=== PATIENT | male | born 1940 | race Caucasian/White ===

== ENCOUNTER 2024-01-26 17:37 | Inpatient (IN) ==
--- OUTSIDE RECORDS SUMMARY | 2024-01-26 17:44 | External Medical Summary | Summary of Care ---
Author Name Unknown Organization [facility] Address [address] [facility] [place] [address] Phone [phone] Care Team Providers Care Credit Product Analyst Name Role Phone Laina Villanueva MD Primary Care Provider [phone] Reason for Visit * Reason Onset Date Comments Appointment 01/11/2024 Return 03/09 for AKs and keep 05/09 appt for full skin exam. Encounter Details Date Type Department Care Team (Late st Contact Info) Description 01/11/2024 [address] [place] [address] Mita Ramirez PA-C [address] [place] [address] [place] [address] Appointment (Return 03/09 for AKs and keep ... Allergies No known active allergiesdocumented as of this encounter (statuses as of 01/14/2024) Medications Medication Sig Dispensed Refills Start Date End Date Status Acetaminophen 500 MG Oral Capsule Take 1 Capsule by mouth. 0 Active Albuterol Sulfate 108 (90 Base) MCG/ACT Inhalation Aerosol Powder Breath Activated Inhale 2 Puffs by mouth. 0 Active amLODIPine Besylate 2.5 MG Oral Tablet (Norvasc) 0 09/24/2022 Active Atorvastatin Calcium 40 MG Oral Tablet (Lipitor) 0 09/25/2022 Active Diclofenac Sodium 75 MG Oral Tablet Delayed Release (Voltaren) Take 1 Tablet by mouth. 0 Active Furosemide 20 MG Oral Tablet (Lasix) 0 09/21/2022 Active Nitroglycerin 0.4 MG Sublingual Tablet Sublingual (Nitrostat) Place 1 Tablet under the tongue. 0 Active Pantoprazole Sodium 20 MG Oral Tablet Delayed Release (Protonix) 0 09/21/2022 Active Aspirin 81 MG Oral Capsule Take by mouth. 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 Slaughter, will attempt to get records) Atelectasis 09/18/2022 documented as of this encounter (statuses as of 01/14/2024) Social History Tobacco Use Types Packs/Day Years Used Date Smoking Tobacco: Former Cigarettes Smokeless Tobacco: Former Sex and Gender Information Value Date Recorded Sex Assigned at Not on file Gender Identity Not on file Sexual Orientation Not on file Job Start Date Occupation Industry Not on file Not on file Not on file documented as of this encounter Functional Status Functional Status Response Date of Assess ment Are you deaf or do you have serious difficulty h earing? No 10/25/2022 Are you blind or do you have serious difficulty seeing, even when wearing glasses? No 10/25/2022 Do you have serious difficul ty walking or climbing stairs? (5 years old or older) No 10/25/2022 Do you have difficulty dress ing or bathing? (5 years old or older) No 10/25/2022 Because of a physical, menta l, or emotional condition, do you have difficulty doing errands alone such as visiting a doctor s office or shopping? (15 years old or older) No 10/25/19 Cognitive Status Response Date of Assessm ent Because of a physical, menta l, or emotional condition, do you have serious difficulty concentrating, remembering, or making decisions? (5 years old or older) No 10/25/2022 documented as of this encounter Miscellaneous Notes * Telephone Encounter - Digna Hernández LPN - 01/14/2024 10:36 AM EDT Called, spoke with pt, scheduled. * Telephone Encounter - Digna Hernández LPN - 01/13/2024 1:57 PM EDT Called pt and left VM advising he give us a call to get this apt scheduled. * Telephone Encounter - Hilton Desir OSA - 01/11/2024 10:12 AM EDT Pt needs scheduled for the February appt. I found pt on Recall List. Please schedule. documented in this encounter Plan of Treatment Upcoming Encounters Date Type Department Care Team (Late st Contact Info) Description 03/02/2024 11:40 AM EDT Office Visit Dermatology [address] [place] [address] Mita Ramirez PA-C [address] [place] [address] [place] [phone] 05/11/2024 11:20 AM EDT Office Visit Dermatology [address] [place] [address] Mita Ramirez PA-C [address] [place] [address] [place] [address] Health Maintenance Due Date Last Done Comments Depression Screening 1952 DTaP,Tdap,and Td Vaccines (1 - Tdap) 11/18/1958 Zoster Vaccines (1 of 2) 11/18/1989 Pneumococcal Vaccine: 65+ Ye ars (1 of 1 - PCV) 11/18/2004 COVID-19 Vaccine (2022-2 4 season) 2023 Influenza Vaccine (FLU shot) (Season Ended) 2024 GARDASIL-HPV IMMUNIZATION SERIES Aged Out No longer eligible based on patient's age to complete this topic Hepatitis B Aged Out No longer eligi ble based on patient's age to complete this topic MENINGOCOCCAL (MENACTRA/MENVEO) Aged Out No longer eligible based on patient's age to complete this topic documented as of this encounter Medical Devices Not on filedocumented as of this encounter Care Teams Credit Product Analyst Relationship Specialty Start Date End Date Laina Villanueva MD [address] [place] [address] [place] [address] PCP - General 02/03/08 documented as of this encounter
--- OUTSIDE RECORDS SUMMARY | 2024-01-26 17:44 | External Medical Summary | Summary of Care ---
Author Name Unknown Organization [facility] Address [address] [place] [address] Phone [phone] Care Team Providers Care [employer] Developer Name Role Phone Laina Villanueva MD Primary Care Provider [phone] Reason for Visit * Reason Comments Mohs Surgery Mohs L scalp behind ear- * Evaluate & Treat - Unlimited Visits (Within 10 days (routine)) - Authorized Specialty Diagnoses / Procedures Referred By Contac t Referred To Contact Dermatology Diagnoses SCC (squamous cell carcinoma), scalp/neck Basal cell carcinoma (BCC) of chin Mita Ramirez PA-[address] [place] [address] Referral ID Status Reason Start Date Expiration Date Visits Requested Visits Authorized [id number] Authorized Specialty Services Required 12/19/2023 [id number] Encounter Details Date Type Department Care Team (Late st Contact Info) Description 12/31/2023 10:00 AM EDT Office Visit MOHS Surgery [facility] [address] [place] [address] Rachelle Preston MD [address] [place] [id number] Squamous cell carcinoma of scalp*; Basal cell carcinoma (BCC) of right side of neck Allergies No known active allergiesdocumented as of this encounter (statuses as of 12/31/2023) Medications Medication Sig Dispensed Refills Start Date [...] as of this encounter (statuses as of 12/31/2023) Active Problems Problem Noted Date Diagnosed Date [...] as of this encounter (statuses as of 12/31/2023) Social History Tobacco Use Types Packs/Day Years Used Date Smoking Tobacco: Former Cigarettes Smokeless Tobacco: Former Sex and Gender Information Value Date Recorded Sex Assigned at Not on file Gender Identity Not on file Sexual Orientation Not on file Job Start Date Occupation Industry Not on file Not on file Not on file documented as of this encounter Last Filed Vital Signs Vital Sign Reading Time Taken Comments Blood Pressure - - Pulse - - Temperature 36.4 C (97.5 F) 12/31/2023 9:53 AM ED T Respiratory Rate - - Oxygen Saturation - - Inhaled Oxygen Concentration - - Weight 82.1 kg (181 lb) 12/31/2023 9:53 AM EDT Height - - Body Mass Index - - documented in this encounter Functional Status Functional Status Response [...] No 10/25/2022 documented as of this encounter Progress Notes * Rachelle Preston MD - 12/31/2023 12:54 PM EDT Nadine Mohs Surgery Note (See separate transcribed operative note for further detail) History: Huy Rayo is a 83 year old patient seen at the request of Mita Ramirez PA-C for evaluation and management of the following lesions: A. Skin, L scalp, behind ear, shave: Atypical squamous proliferation, extending broadly to the deep margin (see comment) Comment: There are features of at least hypertrophic actinic keratosis but given the volume that extends broadly to the deep margin this is concerning for underlying invasive squamous cell carcinoma,not visible in the portions available. B. Skin, R underside of chin, shave: Basal cell carcinoma, at least nodular type Patient problem list reviewed. Patient medication/allergy lists reviewed. Examination: Huy Rayo is alert, oriented and appears well and in no distress. The patient's skin is remarkable for: Left scalp, behind ear: 1.2 cm x 1 cm crusted eroded plaque Right underside of chin: 1.6 cm x 1.1 cm pink plaque Impression/Plan: Atypical squamous proliferation, left scalp, behind ear - lesion re-biopsied today, read in Mohs lab on frozen sections, diagnosed as squamous cell carcinoma, and subsequently treated with Mohs micrographic surgery Shave Biopsy of the lesion noted above to establish and confirm diagnosis. The procedure, risks, benefits, alternatives and expected outcomes were discussed with the patient and consent was obtained.Time out called. Patient identified, procedure verified, site identified and verified. Patient and staff present in agreement. Area prepped with alcohol and anesthetized with 0.5% lidocaine with epinephrine at 1:200,000 concentration. Biopsy of lesion performed. 20% AlCl and bandaging applied. Specimen sent to Mohs lab for frozen sections. Specimen # [id number] BIOPSY NUMBER/TYPE/SITE: [id number], shave biopsy, left scalp, behind ear. GROSS DESCRIPTION OF SPECIMEN: Received is a specimen of tissue labelled corresponding to the site listed. MICROSCOPIC DESCRIPTION OF SPECIMEN: Irregular masses of epidermal cells exhibiting squamous atypiaextend into the dermis. 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 Microscopic examination of the specimen allowed the Mohs surgeon, whose dual role is to function as both surgeon and pathologist, to precisely identify the location of any remaining tumor or ascertain that the tissue margins were free of tumor. This process of excision of remaining tumor, mapping, and histologic exam was repeated until the tumor was excised completely. Patient identified, procedure verified, site identified and verified with the patient. Time out completed. Surgical removal of the lesion discussed with the patient (risks and benefits, including possibility of scarring, infection, bleeding, recurrence or potential for further treatment). I have specifically identified the site with the patient. I have discussed the fact that the patient will have a scar after the procedure regardless of granulation or repair with sutures. I have discussed that the repair options can range from granulation in some cases to linear or curvilinear closures to larger flaps or grafts. There is a risk of injury to nerves causing temporary or permanent numbness or the inability to move muscles fully such as the inability to lift eyebrows. Questions answered and verbal and written consent was obtained. 1 stage(s) Anesthetic: 0.05% lidocaine with 1:100,000 epinephrine. Repair: Primary Intermediate layered repair (see separate operative report for details) Absorbable sutures Wound care was discussed verbally, demonstrated and printed wound instructions given as well as wound care supplies. Patient instructed to call with questions or concerns. Personal contact information provided. 2. Basal cell carcinoma - right underside of chin MMS Standard Mohs micrographic technique was utilized to treat this tumor. Microscopic examination of the specimen allowed the Mohs surgeon, whose dual role is to function as both surgeon and pathologist, to precisely identify the location of any remaining tumor or ascertain that the tissue margins were free of tumor. This process of excision of remaining tumor, mapping, and histologic exam was repeated until the tumor was excised completely. Patient identified, procedure verified, site identified and verified with the patient. Time out completed. Surgical removal of the lesion discussed with the patient (risks and benefits, including possibility of scarring, infection, recurrence or potential for further treatment). I have specifically identified the site with the patient. I have discussed the fact that the patient will have a scar after the procedure regardless of granulation or repair with sutures. I have discussed that the repair options can range from granulation in some cases to linear or curvilinear closures to larger flaps or grafts. There is a risk of injury to nerves causing temporary or permanent numbness or the inability to move muscles fully such as the inability to lift eyebrows. Questions answered and verbal and written consent was obtained. 1 stage(s) Anesthetic: 0.05% lidocaine with 1:100,000 epinephrine. Repair: Primary Intermediate layered repair (see separate operative report for details) Absorbable sutures Wound care was discussed verbally, demonstrated and printed wound instructions given as well as wound care supplies. Patient instructed to call with questions or concerns. Personal contact information provided. Follow-up: as needed Rachelle Preston MD Associate, Mohs Micrographic Surgery & Dermatologic Surgery documented in this encounter Nursing Notes * Enma Clifford LPN - 12/31/2023 9:54 AM EDT Referral Doctor: Ashley Hypertension History: Yes, refer to medication information for treatment. Diabetes History: No Thyroid History: No Bleeding Tendency: Yes, refer to medication information for treatment. Artificial Valve or Joint: No Pacemaker: no Defibrillator: no Hepatitis/HIV Exposure: No Smoking: no Consent signed yes documented in this encounter Plan of Treatment Upcoming Encounters Date Type Department Care Team (Late st Contact Info) Description 05/06/2024 8:40 AM EDT Office Visit Dermatology Emmie Tsang [address] [place] [address] [place] [address] Mita Ramirez PA-C [address] [place] [address] [place] [address] Scheduled Referrals Name Type Priority Associated Diagnoses Orde r Schedule MOHS SURGERY REFERRAL OP Referral Within 10 days (routine) SCC (squamous cell carcinoma), scalp/neck Basal cell carcinoma (BCC) of chin Ordered: 12/19/2023 Health Maintenance Due Date Last Done Comments Depression Screening 1952 DTaP,Tdap,and Td Vaccines (1 - Tdap) 11/18/1958 Zoster Vaccines (1 of 2) 11/18/1989 Pneumococcal Vaccine: 65+ Ye ars (1 of 1 - PCV) 11/18/2004 COVID-19 Vaccine ( - 2022-2 4 season) 2023 Influenza Vaccine (FLU shot) [...] Not on filedocumented as of this encounter Visit Diagnoses Diagnosis Squamous cell carcinoma of scalp- Primary Squamous cell carcinoma of scalp and skin of neck Basal cell carcinoma (BCC) of right side of neck documented in this encounter Care Teams [employer] Developer Relationship Specialty Start Date End Date Laina Villanueva MD [address] [place], [place] [address] [address] PCP - General 02/03/08 documented as of this encounter
--- OUTSIDE RECORDS SUMMARY | 2024-01-26 17:44 | External Medical Summary | Summary of Care ---
Author Name Unknown Organization [facility] [address] [facility] [address] Phone [phone] Care Team Providers Care Engagement Specialist Name Role Phone Laina Villanueva MD Primary Care Provider [phone] Reason for Referral * Evaluate & Treat - Unlimited Visits (Within 10 days (routine)) - Authorized Specialty Diagnoses / Procedures Referred By Contann t Referred To Contact Dermatology Diagnoses SCC (squamous cell carcinoma), scalp/neck Basal cell carcinoma (BCC) of [facility] Mita Ramirez PA-C [address] [place] [address] [place] [id number] Referral ID Status Reason Start Date Expiration Date Visits Requested Visits Authorized [id number] Authorized Specialty Services Required 12/19/2023 999 [id number] Question Answer Referral Priority Within 10 days (routine) Where should this appointment be scheduled? [facility] Are you referring the patient for Mohs Surgery and have a current positive skin cancer biopsy result? Yes Type of Procedure MOHS Surgery Comments Spoke to pt regarding bx results. hAK/likely SCC on scalp and BCC on underside of chin, plan on Mohs for both lesions in [facility]. Patient is aware that he will be called to schedule the appt. [facility] A. Skin, L scalp, behind ear, shave: Atypical squamous proliferation, extending broadly to the deep margin (see comment) Comment: There are features of at least hypertrophic actinic keratosis but given the volume that extends broadly to the deep margin this is concerning for underlying invasive squamous cell carcinoma, not visible in the portions available. B. Skin, R underside of chin, shave: Basal cell carcinoma, at least nodular type Reason for Visit * Reason Onset Date Comments Appointment 12/19/2023 Encounter Details Date Type Department Care Team (Late st Contact Info) Description 12/19/2023 Telephone Dermatology Ara Deleon [address] [place] [address] Mita Ramirez PA-C [address] [place] [address] [place] [address] Appointment Allergies No known active allergiesdocumented as of this encounter (statuses as of 12/20/2023) Medications Medication Sig Dispensed Refills Start Date [...] as of this encounter (statuses as of 12/20/2023) Active Problems Problem Noted Date Diagnosed Date [...] as of this encounter (statuses as of 12/20/2023) Social History Tobacco Use Types Packs/Day Years [...] encounter Miscellaneous Notes * Telephone Encounter - Nela Hernandez OSA - 12/20/2023 9:[address] Preston reviewing for first date for mohs for lesion A - if it is ok to offer him 01/30/27. will call patient to schedule as soon as I hear back from DR preston in regard to scheduling * Telephone Encounter - Rachelle Preston MD - 12/19/2023 9:51 PM EDT Two Mohs appt. First Mohs should be for lesion A (re-bx and treat as indicated) and second Mohs for lesion B. A. Skin, L scalp, behind ear, shave: [...] Basal cell carcinoma, at least nodular type * Telephone Encounter - Nela Hernandez OSA - 12/19/2023 1:[address] Preston please review for scheduling. ONE mohs or Two mohs? * Telephone Encounter - Mita Ramirez PA-C - 12/19/2023 12:48 PM EDT Spoke to pt regarding bx results. hAK/likely SCC on scalp and BCC on underside of chin, plan on Mohs for both lesions in [facility]. Patient is aware that he will be called to schedule the appt. Mita Ramirez [facility] A. Skin, L scalp, behind ear, shave: [...] Basal cell carcinoma, at least nodular type documented in this encounter Plan of Treatment Upcoming Encounters Date Type Department Care Team (Late st Contact Info) Description 05/06/2024 8:40 AM EDT Office Visit Dermatology [address] [place] [address] Mita Ramirez PA-C [address] [place] [address] [place] [address] Scheduled Referrals Name Type Priority Associated Diagnoses [...] as of this encounter Visit Diagnoses Diagnosis SCC (squamous cell carcinoma), scalp/neck- Primary Squamous cell carcinoma of scalp and skin of neck Basal cell carcinoma (BCC) of chin documented in this encounter Care Teams Engagement Specialist Relationship Specialty Start Date End Date Laina Villanueva MD [address] [place] [address] [place] [address] PCP - General 02/03/08 documented as of this encounter
--- OUTSIDE RECORDS SUMMARY | 2024-01-26 17:44 | External Medical Summary | Summary of Care ---
Author Name Unknown Organization [facility] [address] [facility] [address] Phone [phone] Care Team Providers Care Radio Tester Name Role Phone Laina Villanueva MD Primary Care Provider [phone] Reason for Referral * Evaluate & Treat - Unlimited Visits (Within 10 days (routine)) - Authorized Specialty Diagnoses / Procedures Referred By Contann t Referred To Contact Dermatology Diagnoses SCC (squamous cell carcinoma), scalp/neck Basal cell carcinoma (BCC) of [facility] Mita Ramirez PA-C [address] [place] [address] [place] [address] Referral ID Status Reason Start Date Expiration Date Visits Requested Visits Authorized [id number] Authorized Specialty Services Required 12/19/2023 999 [id number] [...] plan on Mohs for both lesions in [facility]. Patient is aware that he will be called to schedule the appt. Mita Ramirez [facility] A. Skin, L scalp, behind ear, shave: [...] Info) Description 12/19/2023 Telephone Dermatology Ara Deleon S[address] [place] [address] Mita Ramirez PA-C [address] [place] [address] [place] [address] Appointment Allergies No known active allergiesdocumented as of this encounter (statuses as of 12/23/2023) Medications Medication Sig Dispensed Refills Start Date [...] as of this encounter (statuses as of 12/23/2023) Active Problems Problem Noted Date Diagnosed Date [...] as of this encounter (statuses as of 12/23/2023) Social History Tobacco Use Types Packs/Day Years [...] Telephone Encounter - Nela Hernandez OSA - 12/23/2023 8:[address] Preston how soon should lesion A be scheduled? * Telephone Encounter - Nela Hernandez OSA - 12/20/2023 9:[address] Preston reviewing for first date for mohs for lesion A -I will call patient to schedule as soon [...] plan on Mohs for both lesions in [facility]. Patient is aware that he will be called to schedule the appt. Mita Ramirez [facility] A. Skin, L scalp, behind ear, shave: [...] Date Type Department Care Team (Late st [facility] Info) Description 05/06/2024 8:40 AM EDT Office Visit Dermatology Emmie Tsang [address] [place] [address] [place] [address] Mita Ramirez PA-C [address] [place] [address] [place] [address] Scheduled Referrals Name Type Priority Associated Diagnoses [...] chin documented in this encounter Care Teams Radio Tester Relationship Specialty Start Date End Date Laina Villanueva MD [address] [place], [place] [address] [address] PCP - General 02/03/08 documented as of this encounter
--- OUTSIDE RECORDS SUMMARY | 2024-01-26 17:44 | External Medical Summary | Summary of Care ---
Author Name Unknown Organization [facility] [address] [facility] [address] Phone [phone] Care Team Providers Care District Captain Name Role Phone Laina Villanueva MD Primary Care Provider [phone] [phone] Reason for Referral * Evaluate & Treat - Unlimited Visits (Within 10 days (routine)) - Authorized Specialty Diagnoses / Procedures Referred By Contann t Referred To Contact Dermatology Diagnoses SCC (squamous cell carcinoma), scalp/neck Basal cell carcinoma (BCC) of [facility] Mita Ramirez PA-C [address] [place] [address] [place] [address] Referral ID Status Reason Start Date Expiration Date Visits Requested Visits Authorized [id number] Authorized Specialty Services Required 12/19/2023 999 999 [...] plan on Mohs for both lesions in [facility]. Patient is aware that he will be called to schedule the appt. [facility]ita Ramirez [facility] Skin, L scalp, behind ear, shave: [...] Info) Description 12/19/2023 Telephone Dermatology Ara Deleon [place] [place] [address] Mita Ramirez PA-C [address] [place] [address] [place] [address] Appointment Allergies No known active allergiesdocumented as [...] Encounter - Nela Hernandez OSA - 12/23/2023 9:26 AM EDT Spoke to patient and scheduled for 12/30 at 10am for scalp and 05/21 for chin will send a mohs packet * Telephone Encounter - Rachelle Preston MD - 12/23/2023 8:41 AM EDT Within 6 weeks, if nothing available, schedule for first available and add to cancellation list. * Telephone Encounter - Nela Hernandez OSA [...] plan on Mohs for both lesions in [facility]. Patient is aware that he will be called to schedule the appt. Mita Ramirez [facility] A. Skin, L scalp, behind ear, shave: [...] 10:00 AM EDT Office Visit [facility] [address] [address] Rachelle Preston MD [address] [place] [address] [place] [address] 05/06/2024 8:40 AM EDT Office Visit Dermatology [address] [place] [address] Mita Ramirez PA-C [address] [place] [address] [place] [address] 05/21/2024 10:30 AM EDT Office Visit [facility] [address] [place] [address] Rachelle Preston MD [address] [place] [address] [place] [address] Scheduled Referrals Name Type Priority Associated Diagnoses [...] chin documented in this encounter Care Teams District Captain Relationship Specialty Start Date End Date Laina Villanueva MD [address] [place] [address] [place] [address] PCP - General 02/03/08 documented as of this encounter
--- OUTSIDE RECORDS SUMMARY | 2024-01-26 17:44 | External Medical Summary | Summary of Care ---
Author Name Unknown Organization [facility] Address [address] [facility] [address] Phone [phone] Care Team Providers Care Bulk Pallet Builder Name Role Phone Laina Villanueva MD Primary Care Provider [phone] Reason for Referral * Evaluate & Treat - Unlimited Visits (Within 10 days (routine)) - Authorized Specialty Diagnoses / Procedures Referred By Contann t Referred To Contact Dermatology Diagnoses SCC (squamous cell carcinoma), scalp/neck Basal cell carcinoma (BCC) of [facility] Mita Ramirez PA-C [address] [place] [address] [place] [address] Referral ID Status Reason Start Date Expiration Date Visits Requested Visits Authorized [id number] Authorized Specialty Services Required 12/19/2023 999 999 [...] plan on Mohs for both lesions in [facility]. Patient is aware that he will be called to schedule the appt. [facility] Skin, L scalp, behind ear, [...] Info) Description 12/19/2023 Telephone Dermatology Ara Deleon [place] [place] [address] Mita Ramirez PA-C [address] [place] [address] [place] [address] Appointment Allergies No known active allergiesdocumented as [...] first date for mohs for lesion A will call patient to schedule as soon as Ihear back from DR preston in regard to [...] plan on Mohs for both lesions in [facility]. Patient is aware that he will be called to schedule the appt. Mita Ramirez [facility]. Skin, L scalp, behind ear, [...] 05/06/2024 8:40 AM EDT Office Visit Dermatology [address] [place] [address] Mita Ramirez PA-C [address] [place] [address] [place] [address] Scheduled Referrals Name Type Priority Associated Diagnoses [...] of 1 - PCV) 11/18/2004 COVID-19 Vaccine (1 - 2022-2 4 season) 2023 Influenza Vaccine [...] chin documented in this encounter Care Teams Bulk Pallet Builder Relationship Specialty Start Date End Date Laina Villanueva MD [address] [place] [address] PCP - General 02/03/08 documented as of this encounter
--- OUTSIDE RECORDS SUMMARY | 2024-01-26 17:44 | External Medical Summary | Summary of Care ---
Author Name Unknown Organization [facility] Address [address] [facility] [address] Phone [phone] Care Team Providers Care Metal Moulder Name Role Phone Laina Villanueva MD Primary Care Provider [phone] Reason for Referral * Evaluate & Treat - Unlimited Visits (Within 10 days (routine)) - Authorized Specialty Diagnoses / Procedures Referred By Contann t Referred To Contact Dermatology Diagnoses SCC (squamous cell carcinoma), scalp/neck Basal cell carcinoma (BCC) of [facility] Mita Ramirez PA-C [address] [place] [address] [place] [address] Referral ID Status Reason Start Date Expiration Date Visits Requested Visits Authorized [id number] Authorized Specialty Services Required 12/19/2023 999 999 [...] plan on Mohs for both lesions in [facility]. Patient is aware that he will be called to schedule the appt. [facility] Skin, L scalp, behind ear, [...] Info) Description 12/19/2023 Telephone Dermatology Ara Deleon [place] [place] [address] Mita Ramirez PA-C [address] [place] [address] [place] [address] Appointment Allergies No known active allergiesdocumented as [...] encounter Miscellaneous Notes * Telephone Encounter - Rachelle Preston MD [...] plan on Mohs for both lesions in [facility]. Patient is aware that he will be called to schedule the appt. Mita Ramirez JILLIAN Bird. Skin, L scalp, behind ear, shave: Atypical [...] 05/06/2024 8:40 AM EDT Office Visit Dermatology [address] [place] [address] Mita Ramirez PA-C [address] [place] [address] [place] [address] Scheduled Referrals Name Type Priority Associated Diagnoses [...] chin documented in this encounter Care Teams Metal Moulder Relationship Specialty Start Date End Date Laina Villanueva MD [address] [place] [address] [place] [address] PCP - General 02/03/08 documented as of this encounter
--- OUTSIDE RECORDS SUMMARY | 2024-01-26 17:44 | External Medical Summary | Summary of Care ---
Author Name Unknown Organization [facility] Address [address] [facility] [address] Phone [phone] Care Team Providers Care Service Unit Operator Oil Well Name Role Phone Laina Villanueva MD Primary Care Provider [phone] Reason for Referral * Evaluate & Treat - Unlimited Visits (Within 10 days (routine)) - Authorized Specialty Diagnoses / Procedures Referred By Contann t Referred To Contact Dermatology Diagnoses SCC (squamous cell carcinoma), scalp/neck Basal cell carcinoma (BCC) of [facility] Mita Ramirez PA-C [address] [place] [address] [place] [address] Referral ID Status Reason Start Date Expiration Date Visits Requested Visits Authorized [id number] Authorized Specialty Services Required 12/19/2023 999 999 [...] plan on Mohs for both lesions in [facility]. Patient is aware that he will be called to schedule the appt. [facility]ita [facility]. Skin, L scalp, behind ear, shave: [...] Info) Description 12/19/2023 Telephone Dermatology Ara Deleon [place] [place] [address] Mita Ramirez PA-C [address] [place] [address] [place] [address] Appointment Allergies No known active allergiesdocumented as [...] plan on Mohs for both lesions in [facility]. Patient is aware that he will be called to schedule the appt. Mita Ramirez [facility]. Skin, L scalp, behind ear, shave: [...] 05/06/2024 8:40 AM EDT Office Visit Dermatology [address] [place] [address] Mita Ramirez PA-C [address] [place] [address] [place] [address] Scheduled Referrals Name Type Priority Associated Diagnoses [...] chin documented in this encounter Care Teams Service Unit Operator Oil Well Relationship Specialty Start Date End Date Laina Villanueva MD [address] [place] [address] PCP - General 02/03/08 documented as of this encounter
--- OUTSIDE RECORDS SUMMARY | 2024-01-26 17:45 | External Medical Summary | Summary of Care ---
Author Name Unknown Organization [facility] Address [address] [facility] [address] Phone [phone] Care Team Providers Care Medical Office Receptionist Name Role Phone Laina Villanueva MD Primary Care Provider [phone] Reason for Referral * Evaluate & Treat - Unlimited Visits (Within 10 days (routine)) - Authorized Specialty Diagnoses / Procedures Referred By Contann t Referred To Contact Dermatology Diagnoses SCC (squamous cell carcinoma), scalp/neck Basal cell carcinoma (BCC) of [facility] Mita Ramirez PA-C [address] [place] [address] [place] [address] Referral ID Status Reason Start Date Expiration Date Visits Requested Visits Authorized [id number] Authorized Specialty Services Required 12/19/2023 999 999 [...] plan on Mohs for both lesions in [facility]. Patient is aware that he will be called to schedule the appt. [facility]. Skin, L scalp, behind ear, [...] Info) Description 12/19/2023 Telephone Dermatology Ara Deleon [place] [place] [address] Mita Ramirez PA-C [address] [place] [address] [place] [address] Appointment Allergies No known active allergiesdocumented as [...] plan on Mohs for both lesions in [facility]. Patient is aware that he will be called to schedule the appt. Mita Ramirez [facility]. Skin, L scalp, behind ear, [...] 05/06/2024 8:40 AM EDT Office Visit Dermatology [address] [place] [address] Mita Ramirez PA-C [address] [place] [address] [place] [address] Scheduled Referrals Name Type Priority Associated Diagnoses [...] chin documented in this encounter Care Teams Medical Office Receptionist Relationship Specialty Start Date End Date Laina Villanueva MD [address] [place] [address] PCP - General 02/03/08 documented as of this encounter
--- OUTSIDE RECORDS SUMMARY | 2024-01-26 17:45 | External Medical Summary | Summary of Care ---
Author Name Unknown Organization [facility] Address [address] [facility] [address] Phone [phone] Care Team Providers Care Universal Banker Name Role Phone Laina Villanueva MD Primary Care Provider [phone] Reason for Referral * Evaluate & Treat - Unlimited Visits (Within 10 days (routine)) - Authorized Specialty Diagnoses / Procedures Referred By Contann t Referred To Contact Dermatology Diagnoses SCC (squamous cell carcinoma), scalp/neck Basal cell carcinoma (BCC) of [facility] Mita Ramirez PA-C [address] [place] [address] [place] [address] Referral ID Status Reason Start Date Expiration Date Visits Requested Visits Authorized [id number] Authorized Specialty Services Required 12/19/2023 999 999 [...] on Mohs for both lesions in [facility]. Patient is aware that he will be called to schedule the appt. Mita Ramirez [facility] A. Skin, L scalp, behind ear, shave: [...] Info) Description 12/19/2023 Telephone Dermatology Ara Deleon [place] [place] [address] Mita Ramirez PA-C [address] [place] [address] [place] [address] Appointment Allergies No known active allergiesdocumented as of this encounter (statuses as of 12/19/2023) Medications Medication Sig Dispensed Refills Start Date [...] as of this encounter (statuses as of 12/19/2023) Active Problems Problem Noted Date Diagnosed Date [...] as of this encounter (statuses as of 12/19/2023) Social History Tobacco Use Types Packs/Day Years [...] plan on Mohs for both lesions in [facility]. Patient is aware that he will be called to schedule the appt. Mita Ramirez [facility]IAN A. Skin, L scalp, behind ear, shave: [...] 05/06/2024 8:40 AM EDT Office Visit Dermatology [address] [place] [address] Mita Ramirez PA-C [address] [place] [address] [place] [address] Scheduled Referrals Name Type Priority Associated Diagnoses [...] chin documented in this encounter Care Teams Universal Banker Relationship Specialty Start Date End Date Laina Villanueva MD [address] [place] [address] [place] [address] PCP - General 02/03/08 documented as of this encounter
--- OUTSIDE RECORDS SUMMARY | 2024-01-26 17:45 | External Medical Summary | Summary of Care ---
Author Name Unknown Organization [facility] Address [address] [facility] [place] [address] Phone [phone] Care Team Providers Care Forging Machine Hand Name Role Phone Laina Villanueva MD Primary Care Provider [phone] Reason for Visit * Reason Comments Outpatient Testing Encounter Details Date Type Department Care Team (Latest Contact Info) Description 10/18/2023 9:20 AM EST Laboratory Laboratory [address] [place] [address] [facility] [address] [place] [address] Elinor type IIa hyperlipoproteinemia Allergies No known active allergiesdocumented as of this encounter (statuses as of 10/18/2023) Medications Medication Sig Dispensed Refills Start Date [...] as of this encounter (statuses as of 10/18/2023) Active Problems Problem Noted Date Diagnosed Date 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 Slaughter, will attempt to get records) Atelectasis 09/18/2022 documented as of this encounter (statuses as of 10/18/2023) Social History Tobacco Use Types Packs/Day Years [...] No 10/25/2022 documented as of this encounter Plan of Treatment Upcoming Encounters Date Type Department Care Team (Late st Contact Info) Description 05/06/2024 8:40 AM EDT Office Visit Dermatology [address] [place] [address] Mita Ramirez PA-C [address] [place] [address] [place] [address] Pending Results Name Type Priority Associated Diagnoses Date /Time LIPID PANEL WITH DIRECT LDL IF TG IS HIGH Lab Routine Elinor type IIa hyperlipoproteinemia 10/18/2023 9:22 AM EST COMPREHENSIVE METABOLIC PANEL Lab Routine Elinor type IIa hyperlipoproteinemia 10/18/2023 9:22 AM EST PSA Lab Routine Elinor type IIa hyperlipoproteinemia 10/18/2023 9:22 AM EST Health Maintenance Due Date Last Done Comments COVID-19 Vaccine (#1) 05/21/1941 Depression Screening 1952 DTaP,Tdap,and Td Vaccines (1 - Tdap) 11/18/1958 Zoster Vaccines (1 of 2) 11/18/1989 Pneumococcal Vaccine: 65+ Ye ars (1 - PCV) 11/18/2004 Influenza Vaccine (FLU shot) (#1) 2023 GARDASIL-HPV IMMUNIZATION SERIES Aged Out No longer [...] as of this encounter Visit Diagnoses Diagnosis Elinor type IIa hyperlipoproteinemia Pure hypercholesterolemia documented in this encounter Care Teams Forging Machine Hand Relationship Specialty Start Date End Date Laina Villanueva MD [address] [place], [place] [address] [place] [address] PCP - General 02/03/08 documented as of this encounter
--- OUTSIDE RECORDS SUMMARY | 2024-01-26 17:45 | External Medical Summary | Summary of Care ---
Author Name Unknown Organization [facility] Address [address] [facility] [address] Phone [phone] Care Team Providers Care Waste Elimination Name Role Phone Laina Villanueva MD Primary Care Provider [phone] Reason for Referral * Evaluate & Treat - Unlimited Visits (Within 10 days (routine)) - Authorized Specialty Diagnoses / Procedures Referred By Contann t Referred To Contact Dermatology Diagnoses SCC (squamous cell carcinoma), scalp/neck Basal cell carcinoma (BCC) of [facility] Mita Ramirez PA-C [address] [place] [address] [place] [address] Referral ID Status Reason Start Date Expiration Date Visits Requested Visits Authorized [id number] Authorized Specialty Services Required 12/19/2023 999 999 [...] plan on Mohs for both lesions in [facility]. Patient is aware that he will be called to schedule the appt. Mita Ramirez [facility]. Skin, L scalp, behind ear, [...] Info) Description 12/19/2023 Telephone Dermatology Ara Deleon [place] [place] [address] Mita Ramirez PA-C [address] [place] [address] [place] [address] Appointment Allergies No known active allergiesdocumented as [...] encounter Miscellaneous Notes * Telephone Encounter - Mita Ramirez PA-C - 12/19/2023 12:48 PM EDT Spoke to pt regarding bx results. hAK/likely SCC on scalp and BCC on underside of chin, plan on Mohs for both lesions in [facility]. Patient is aware that he will be called to schedule the appt. Mita Ramirez SJILLIAN Skin, L scalp, behind ear, shave: Atypical squamous proliferation, extending broadly to the deep margin (see comment) Comment: There are features of at least hypertrophic actinic keratosis but given the volume that extends broadly to the deep margin this is concerning for underlying invasive squamous cell carcinoma,not visible in the portions available. B. Skin, R underside of chin, mark: Basal cell carcinoma, at least nodular type documented in this encounter Plan of Treatment Upcoming Encounters Date Type Department Care Team (Late st Contact Info) Description 05/06/2024 8:40 AM EDT Office Visit Dermatology [address] [place] [address] Mita Ramirez PA-C [address] [place] [address] [place] [address] Scheduled Referrals Name Type Priority Associated Diagnoses [...] chin documented in this encounter Care Teams Waste Elimination Relationship Specialty Start Date End Date Laina Villanueva MD [address] [place], [place] [address] [place] [address] PCP - General 02/03/08 documented as of this encounter
--- OUTSIDE RECORDS SUMMARY | 2024-01-26 17:45 | External Medical Summary | Summary of Care ---
Author Name Unknown Organization [facility] Address [address] [facility] [place] [address] Phone [phone] Care Team Providers Care Retail Center Receptionist Name Role Phone Laina Villanueva MD Primary Care Provider [phone] Reason for Visit * Reason Comments Follow Up 2-3 months for AKs Encounter Details Date Type Department Care Team (Late st Contact Info) Description 12/18/2023 11:20 AM EDT Office Visit Dermatology [address] [place] [address] Mita Ramirez PA-C [address] [place] [address] [place] [address] Hx of melanoma of skin*; Hx of nonmelanoma skin cancer; Actinic keratosis; Neoplasm of uncertain behavior of skin Allergies No known active allergiesdocumented as of this encounter (statuses as of 12/18/2023) Medications Medication Sig Dispensed Refills Start Date [...] as of this encounter (statuses as of 12/18/2023) Active Problems Problem Noted Date Diagnosed Date 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 Slaughter, will attempt to get records) Atelectasis 09/18/2022 documented as of this encounter (statuses as of 12/18/2023) Social History Tobacco Use Types Packs/Day Years [...] No 10/25/2022 documented as of this encounter Patient Instructions * Patient Instructions* Mita Ramirez PA-C - 12/18/2023 11:24 AM EDT Skin Cryosurgery (FREEZING) Instructions Most areas treated by freezing will need very little care. You may wash normally with soap and water and leave any small crusts in place. Vaseline to treated areas 2-3 times per day is a good idea, you do not need to keep them covered with bandages. If a large blister forms and breaks, you will want to apply a light dressing to the area. CHANGE DRESSING ONCE DAILY 1. Wash hands and remove the original dressing(s) in 12-24 hours. 2. Gently clean wound(s) with soap and water. Rinse with water and pat the wound dry. 3. Apply a thin layer of Vaseline ointment with a Q-tip. 4. Cover with a bandage if area(s) is not on the face or scalp. A dressing is not required on the face or scalp. Use non-adherent dressing and paper tape if you are sensitive to band-aid adhesive sensitive. 5. If you have any concerns about the healing wound, please either or our main Dermatology office in [place] at [phone]. If an emergency, please go to your nearest Emergency Department. documented in this encounter Progress Notes * Mita Ramirez PA-C - 12/18/2023 11:22 AM EDT SUBJECTIVE: History of Present Illness: Huy Rayo is a 82 year old male seen today for follow up of AKs. Previous office visit: 08/14/2023 Last attempted treatments include: cryo to AKs Full skin exam 05/08 Symptomatic scaly area behind L ear. REVIEW OF SYSTEMS: SKIN: No other new or changing moles. HEME/LYMPH: No new or enlarging lumps or bumps. CONSTITUTIONAL: No nausea, vomiting, fevers, chills, diarrhea. No recent unintended weight loss, night sweats, appetite or malaise. RESP: negative MSK/EXT: Negative or as per HPI GI: negative CV: Negative or as per HPI Rest of systems are negative or as per HPI SKIN CANCER HX: MalignantMelanoma (L preauricular cheek 06/02, 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 Slaughter), actinic keratoses Reviewed, same day as visit, 0 [facility] Dermatology lab work(s)/pathology report(s) as well as those sent by referring provider prior to seeing pt. MEDICA TIONS: Current Outpatient Medications Medication Sig Dispense Refill Acetaminophen 500 MG Oral Capsule Take 1 Capsule by mouth. Albuterol Sulfate 108 (90 Base) MCG/ACT Inhalation Aerosol Powder Breath Activated Inhale 2 Puffs by mouth. amLODIPine Besylate 2.5 MG Oral Tablet (Norvasc) Atorvastatin Calcium 40 MG Oral Tablet (Lipitor) Diclofenac Sodium 75 MG Oral Tablet Delayed Release (Voltaren) Take 1 Tablet by mouth. Furosemide 20 MG Oral Tablet (Lasix) Nitroglycerin 0.4 MG Sublingual Tablet Sublingual (Nitrostat) Place 1 Tablet under the tongue. Pantoprazole Sodium 20 MG Oral Tablet Delayed Release (Protonix) Aspirin 81 MG Oral Capsule Take by mouth. No current facility-administered medications for this visit. ALLERG IES: Patient has noknown allergies. OBJECT CESAR: GEN: alert, no distress, appears oriented, pleasant, and cooperative. SKIN: Detailed exam of hair, face including lids and lips, neck, bilateral upper ext. (arm, hand, fingers), palpation of scalp, and fingernails completed: 1A. L scalp, behind ear-[id number] eroded pink/hemorrhagic oval papule. 2B. R underside of chin-1.3x0.4cm white/yellow hyperkeratotic plaque. 3. Scalp/face/ears/neck-Extensive pink scaly papules and plaques, some hyperkeratotic. ASSESS MENT/PLAN: 1A. VK vs hAK vs SCCIS on L scalp behind ear-Tangential biopsy of the lesion noted above to confirmdiagnosis. The procedure, risks (to include but not limited to pain, bleeding, infection and scarring), benefits, alternatives and expected outcomes were discussed with the patient and verbal consentwas obtained. Time out called. Patient identified, procedure verified, site identified and verified. Patient and staff present in agreement. Area prepped with alcohol and anesthetized using 1cc of 0.5% lidocaine with epinephrine at 1:200,000 concentration. Tangential biopsy of lesion performed. 20%AlCl, cautery, and pressure bandaging applied. Specimen sent to pathology. Patient instructed in routine post-op care and given wound care brochure. 2B. BCC on R underside of chin-Tangential biopsy of the lesion noted above to confirm diagnosis. The procedure, risks (to include but not limited to pain, bleeding, infection and scarring), benefits,alternatives and expected outcomes were discussed with the patient and verbal consent was obtained.Time out called. Patient identified, procedure verified, site identified and verified. Patient and staff present in agreement. Area prepped with alcohol and anesthetized using 1cc of 0.5% lidocaine with epinephrine at 1:200,000 concentration. Tangential biopsy of lesion performed. 20% AlCl, cautery, and pressure bandaging applied. Specimen sent to pathology. Patient instructed in routine post-op care and given wound care brochure. 3. Actinic keratoses on scalp/face/ears/neck (extensive, treated 28)-Cryosurgery explained to the patient. Discussed risk of blistering, crusting, infection, scarring, reoccurrence of lesions, hypopigmentation, post inflammatory hyperpigmentation with pt prior to procedure. Verbal consent obtained.Time out called immediately prior to procedure and patient identification and site verified. Cryo therapy performed with Liquid Nitrogen via cryo spray unit to lesion (s) noted above. Location noted in physical exam. Post op course explained. *Pt still would rather not use the Efudex, will continue to cryo frequently- discussed again at this office visit Patient alone today. Photo(s) of #1-3 taken, pt verbally consented to having photo(s) taken. Follow-up: 03/09 for AKs (per pt request) and 05/09 for full skin exam Applicable photos (if any) and chart reviewed by Dr. Jey Paul. Presumed diagnoses, expected natural histories, and management options discussed with the patient at length. Questions were addressed and anticipatory guidance provided. They were instructed to contact me if additional questions, concerns, or problems develop in the interim. -There were no barriers to learning and no other pain was related to today's visit. The patient and/or person accompanying patient demonstrates understanding of the visit and treatment. Mita Ramirez PA-C 12/18/2023 11:22 AM Dermatology [address] [place] [address] documented in this encounter Nursing Notes * Antoinette Bradford LPN - 12/18/2023 11:11 AM EDT Patient identified by full name and date of . Chief Complaint Patient presents with Follow Up 2-3 months for AKs documented in this encounter Plan of Treatment Upcoming Encounters Date Type Department Care Team (Late st Contact Info) Description 05/06/2024 8:40 AM EDT Office Visit Dermatology [address] [place] [address] Mita Ramirez PA-C [address] [place] [address] [place] [address] Pending Results Name Type Priority Associated Diagnoses Date /Time SURGICAL PATHOLOGY Pathology Routine Neoplasm of uncertain behavior of skin 12/18/2023 11:43 AM EDT Health Maintenance Due Date Last Done Comments [...] as of this encounter Visit Diagnoses Diagnosis Hx of melanoma of skin- Primary Personal history of malignant melanoma of skin Hx of nonmelanoma skin cancer Personal history of other malignant neoplasm of skin Actinic keratosis Neoplasm of uncertain behavior of skin documented in this encounter Care Teams Retail Center Receptionist Relationship Specialty Start Date End Date Laina Villanueva MD [address] [place] [address] [place] [address] PCP - General 02/03/08 documented as of this encounter
--- OUTSIDE RECORDS SUMMARY | 2024-01-26 17:45 | External Medical Summary ---
Author Name Unknown Address Unknown Organization K01:[facility]ATORY [facility] - [address] [facility] [place] [address] Laboratory Report Ordering Provider Test Date Status HERNANDEZ YOUNG 10/18/2023 09:22:23 Final Observation Date Value Abnormality Reference (Units ) Status Triglyceride 10/18/2023 09:22:23 80 <=174 ( mg/dL) Final Triglyceride Reference Range s (mg/dL):
<150 Acceptable
150-174 Borderline high
175-499 High
>=500 Very high Cholesterol 10/18/2023 09:22:23 117 <200 (mg /dL) Final Total Cholesterol Reference Ranges (mg/dL):
<200 Desirable
200-239 Borderline high
>=240 High HDL 10/18/2023 09:22:23 34 Below low normal >39 (mg/dL) Final HDL Cholesterol Reference Ra nges (mg/dL):
>=60 High (Desirable)
<50 Low (Undesirable) For Females
<40 Low (Undesirable) For Males NON-HDL CHOLESTEROL 10/18/2023 09:22:23 83 <=159 (mg/dL) Final Non-HDL Cholesterol Referenc e Range (mg/dL):
<100 Target level for high risk ASCVD patient
<130 Optimal for general population
130-159 Near optimal for general population
160-189 Borderline High
190-219 High
>=220 Very High LDL, (calculated) 10/18/2023 09:22:23 67 <= 129 (mg/dL) Final LDL Cholesterol Reference Ra nges (mg/dL):
<70 Target level for high risk ASCVD patient
<100 Optimal for general population
100-129 Near optimal for general population
130-159 Borderline high
160-189 High
>=190 Very high Performing Location LABORATORY [facility] - [address] [facility] [address]
--- OUTSIDE RECORDS SUMMARY | 2024-01-26 17:45 | External Medical Summary | Summary of Care ---
Author Name Unknown Organization [facility] Address [address] [facility] [place] [address] Phone [phone] Care Team Providers Care Analytics Leader Name Role Phone Laina Villanueva MD Primary Care Provider [phone] Reason for Visit * Reason Comments Follow Up 2-3 months for AKs, no new concerns Encounter Details Date Type Department Care Team (Late st Contact Info) Description 08/14/2023 10:40 AM EST Office Visit Dermatology [address] [place] [address] Mita Ramirez PA-C [address] [place] [address] [place] [address] Hx of melanoma of skin*; Actinic keratosis; Hx of nonmelanoma skin cancer; Hx of melanoma in situ Allergies No known active allergiesdocumented as of this encounter (statuses as of 08/14/2023) Medications Medication Sig Dispensed Refills Start Date [...] as of this encounter (statuses as of 08/14/2023) Active Problems Problem Noted Date Diagnosed Date 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 Slaughter, will attempt to get records) Atelectasis 09/18/2022 documented as of this encounter (statuses as of 08/14/2023) Social History Tobacco Use Types Packs/Day Years [...] * Patient Instructions* Mita Ramirez PA-C - 08/14/2023 10:41 AM EST Skin Cryosurgery (FREEZING) Instructions Most areas treated [...] either or our main Dermatology office in [place] at [phone]. If an emergency, please go to your nearest Emergency Department. SUNSCREEN USE AND SUN PROTECTION: 1. The best protection is sun avoidance. Seek shade if you can, especially between 10am to 4pm (peak sun hours). 2. Use sunscreen with an SPF (Sun Protection Factor - the number on most sunscreen bottles) of 30 or more that protects from Ultraviolet A (UVA) and Ultraviolet B (UVB) wavelength light (strongly recommend SPF 50). This is referred to as broad spectrum sun protection because it protects from most wa velengths in both spectrums of UVA and UVB light. Unfortunately, even though the protection is broad it is not complete, therefore making sun avoidance the best protection. UVB and UVA have both beenimplicated in causing skin cancers. Older sunscreens only protected from UVB and sunscreens with added UVA protection should contain Titanium dioxide, Zinc oxide, or Avobenzone. Other oil free, non-comedogenic lotion with SPF 30 or greater is fine. 3. Use sun protection if outside for 15 minutes or more. Apply 20-30 minutes before going out and reapply every 1-2 hours. No sunscreen is truly water ''proof'' and it will wash away with sweat, swimming and rubbing. 4. Wear tightly woven, loose fitting (cooler) long sleeved clothing, UV-blocking sun glasses (eyes need protection as well) and wide-brimmed hatwear (no straw hats with holes because light still getsthrough). Strongly recommended *Neutrogena Pure and Free Baby SPF 60 (have separate face and body lotions) orCeraVe AM facial lotion (with SPF 30). If looking for non toxic alternatives-look for non-mirtha particle zinc. Product examples; Think sport, Think baby, Stacie, Saluspot, N42, [place] baby. "Baby" products can be used for all ages. documented in this encounter Progress Notes * Jey Paul MD - 08/14/2023 3:52 PM EST I have seen and examined the patient via teledermatology review of chart note and photos with Mita Ramirez PA-C. I have reviewed and agree with the assessment and plan. * Mita Ramirez PA-C - 08/14/2023 10:40 AM EST SUBJECTIVE: History of Present Illness: Huy Rayo is a 82 year old male seen today for follow up of AKs. Previous office visit: 05/06/2023 Last attempted treatments include: cryo to AKs Full skin exam 8.23 Feels some scaly areas, especially on neck. REVIEW OF SYSTEMS: SKIN: No other new [...] keratoses Reviewed, same day as visit, 0 [facility] Dermatology lab work(s)/pathology report(s) as well [...] fingers), palpation of scalp, and fingernails completed: 1. Frontal scalp/face/ears/neck/L forearm-Extensive pink scaly papules and plaques, some hyperkeratotic. ASSESS MENT/PLAN: 1. Actinic keratoses on scalp/face/ears/neck/L forearm (extensive, treated 31)- Cryosurgery explained to the patient. Discussed risk of blistering, crusting, infection, scarring, reoccurrence of lesions, hypopigmentation, post inflammatory hyperpigmentation with pt prior to procedure. Verbal consent obtained. Time out called immediately prior to procedure and patient identification and site verified. Cryo therapy performed with Liquid Nitrogen via cryo spray unit to lesion (s) noted above. Location noted in physical exam. Post op course explained. *Pt would rather not use the Efudex, will continue to cryo frequently- discussed again at this office visit Patient alone today. Photo(s) of #1 taken, pt verbally consented to having photo(s) taken. Follow-up: 11/09 for AKs Applicable photos (if any) and chart reviewed [...] the visit and treatment. Mita Ramirez PA-C 08/14/2023 10:32 AM Ref: SELF[[id number]] NO STREET ADDRESS AVAILABLE None (office) None (fax) PCP: LAINA VILLANUEVA [address] [place] [address] [place] [address] [phone] documented in this encounter Nursing Notes * Antoinette Bradford LPN - 08/14/2023 10:41 AM EST Patient identified by full name and date of . Chief Complaint Patient presents with Follow Up 2-3 months for AKs, no new concerns documented in this encounter Plan of Treatment Upcoming Encounters Date Type Department Care Team (Late st Contact Info) Description 05/06/2024 8:40 AM EDT Office Visit Dermatology [address] [place] [address] Mita Ramirez PA-C [address] [place] [address] [place] [address] Health Maintenance Due Date Last Done Comments [...] Not on filedocumented as of this encounter Procedures Procedure Name Priority Date/Time Associated Diagnosis Comments DERM IMAGE (SITE) Routine 08/14/2023 Hx of melanoma of skin Actinic keratosis Hx of nonmelanoma skin cancer Hx of melanoma in situ documented in this encounter Results * DERM IMAGE (SITE) (08/14/2023) 08/14/2023 Mita Ramirez PA-C DIGITAL PHOTOG FLAQUITA documented in this encounter Visit Diagnoses Diagnosis Hx of melanoma of skin- Primary Personal history of malignant melanoma of skin Actinic keratosis Hx of nonmelanoma skin cancer Personal history of other malignant neoplasm of skin Hx of melanoma in situ Personal history of malignant melanoma of skin documented in this encounter Care Teams Analytics Leader Relationship Specialty Start Date End Date Laina Villanueva MD [address] [place] [address] [place] [address] PCP - General 02/03/08 documented as of this encounter
--- OUTSIDE RECORDS SUMMARY | 2024-01-26 17:45 | External Medical Summary | Summary of Care ---
Author Name Unknown Organization [facility] Address [address] [facility] [place] [address] Phone [phone] Care Team Providers Care Food And Beverage Attendant Name Role Phone Laina Villanueva MD Primary Care Provider [phone] Reason for Visit * Reason Comments Follow Up 2-3 months for AKs, no new concerns Encounter Details Date Type Department Care Team (Late st Contact Info) Description 08/14/2023 10:40 AM EST Office Visit Dermatology [address] [place] [address] Mita Ramirez PA-C [address] [place] [address] [place] [address] Hx of melanoma of skin*; Actinic keratosis; [...] either or our main Dermatology office in [place] at [phone]. If an emergency, please go to your [...] Product examples; Think sport, Think baby, Stacie, Pixelated, [employer], [employer] baby. "Baby" products can be used for all ages. documented in this encounter Progress Notes * Mita Ramirez PA-C - 08/14/2023 10:40 [...] keratoses Reviewed, same day as visit, 0 [facility] Dermatology lab work(s)/pathology report(s) as well as [...] Mita Ramirez PA-C 08/14/2023 10:32 AM Ref: SELF[[id number]] NO STREET ADDRESS AVAILABLE None (office) None (fax) PCP: LAINA VILLANUEVA [address] [place] [address] [place] [address] [phone] documented in this encounter Nursing Notes * [...] 05/06/2024 8:40 AM EDT Office Visit Dermatology [address] [place] [address] Mita Ramirez PA-C [address] [place] [address] [place] [address] Health Maintenance Due Date Last Done Comments [...] skin documented in this encounter Care Teams Food And Beverage Attendant Relationship Specialty Start Date End Date Laina Villanueva MD [address] [place] [address] [place] [address] PCP - General 02/03/08 documented as of this encounter
--- OUTSIDE RECORDS SUMMARY | 2024-01-26 17:45 | External Medical Summary ---
Author Name Unknown Address Unknown Organization K01:[facility] - [address] [place] [address] Laboratory Report Ordering Provider Test Date Status HERNANDEZ YOUNG 10/18/2023 09:22:23 Final Observation Date Value Abnormality Reference (Units ) Status PSA 10/18/2023 09:22:23 1.58 <4.10 (ng/ mL) Final Performing Location [facility]ATORY [facility] - [address] [place] [address]
--- OUTSIDE RECORDS SUMMARY | 2024-01-26 17:45 | External Medical Summary | Summary of Care ---
Author Name Unknown Organization [facility] Address [address] [facility] [place] [address] Phone [phone] Care Team Providers Care Ash Pit Worker Name Role Phone Laina Villanueva MD Primary Care Provider [phone] Reason for Visit * Reason Comments Follow Up 2-3 months for AKs Encounter Details Date Type Department Care Team (Late st Contact Info) Description 12/18/2023 11:20 AM EDT Office Visit Dermatology [address] [place] [address] Mita Ramirez PA-C [address] [place] [address] [place] [address] Hx of melanoma of skin*; Hx of [...] either or our main Dermatology office in [place] at [phone]. If an emergency, please go to your [...] keratoses Reviewed, same day as visit, 0 [facility] Dermatology lab work(s)/pathology report(s) as well as [...] and fingernails completed: 1A. L scalp, behind [id number] eroded pink/hemorrhagic oval papule. 2B. R underside [...] Mita Ramirez PA-C 12/18/2023 11:22 AM Dermatology [address] [place] [address] documented in this encounter Nursing Notes * Antoinette Bradford LPN - 12/18/2023 11:11 AM EDT Patient identified by full name and date of . Chief Complaint Patient presents with Follow Up 2-3 months for AKs documented in this encounter Miscellaneous Notes * Addendum Note - Antoinette Bradford LPN - 12/18/2023 2:12 PM EDTAddended by: ANTOINETTE BRADFORD on: 12/18/2023 02:12 PM Modules accepted: Orders documented in this encounter Plan of Treatment Upcoming Encounters Date Type Department Care Team (Late st Contact Info) Description 05/06/2024 8:40 AM EDT Office Visit Dermatology [address] [place] [address] Mita Ramirez PA-C [address] [place] [address] [place] [address] Pending Results Name Type Priority Associated Diagnoses [...] skin documented in this encounter Care Teams Ash Pit Worker Relationship Specialty Start Date End Date Laina Villanueva MD [address] [place] [address] [place] [address] PCP - General 02/03/08 documented as of this encounter
--- OUTSIDE RECORDS SUMMARY | 2024-01-26 17:45 | External Medical Summary | Summary of Care ---
Author Name Unknown Organization [facility] Address [address] [facility] [address] Phone [phone] Care Team Providers Care Motor Scooter Mechanic Name Role Phone Laina Villanueva MD Primary Care Provider [phone] Reason for Referral * Evaluate & Treat - Unlimited Visits (Within 10 days (routine)) - Authorized Specialty Diagnoses / Procedures Referred By Contann t Referred To Contact Dermatology Diagnoses SCC (squamous cell carcinoma), scalp/neck Basal cell carcinoma (BCC) of [facility] Mita Ramirez PA-C [address] [place] [address] [place] [address] Referral ID Status Reason Start Date Expiration Date Visits Requested Visits Authorized [id number] Authorized Specialty Services Required 12/19/2023 999 999 [...] plan on Mohs for both lesions in [facility]. Patient is aware that he will be called to schedule the appt. [facility] Skin, L scalp, behind ear, shave: [...] Info) Description 12/19/2023 Telephone Dermatology [place] [place] [address] Mita Ramirez PA-C [address] [place] [address] [place] [address] Appointment Allergies No known active allergiesdocumented as [...] plan on Moh[facility] lesions [facility]. Patient is aware that he will be called to schedule the appt. [facility] Skin, L scalp, behind ear, shave: [...] 05/06/2024 8:40 AM EDT Office Visit Dermatology [address] [place] [address] Mita Ramirez PA-C [address] [place] [address] [place] [address] Scheduled Referrals Name Type Priority Associated Diagnoses [...] chin documented in this encounter Care Teams Motor Scooter Mechanic Relationship Specialty Start Date End Date Laina Villanueva MD [address] [place] [address] [place] [address] PCP - General 02/03/08 documented as of this encounter
--- OUTSIDE RECORDS SUMMARY | 2024-01-26 17:45 | External Medical Summary ---
Author Name Unknown Address Unknown Organization K01:LAB[facility]ORY [facility] - [address] [place] [address] Laboratory Report Ordering Provider Test Date Status HERNANDEZ YOUNG 10/18/2023 09:22:23 Final Observation Date Value Abnormality Reference (Units ) Status BUN 10/18/2023 09:22:23 20 6-20 (mg/dL) Final Creatinine 10/18/2023 09:22:23 1.2 0.6-1.2 (mg/dL) Final Glomerular filtration rate/1.73 sq M.predicted [Volume Rate/Area] in Serum, Plasma or Blood by Creatinine-based formula (CKD-EPI) 10/18/2023 09:22:23 62 >=60 (mL/min) Final eGFR is calculated based on the CKD-EPI 2020 equation SODIUM 10/18/2023 09:22:23 142 135-146 (m mol/L) Final Potassium 10/18/2023 09:22:23 4.2 3.5-5.1 (m mol/L) Final Cl 10/18/2023 09:22:23 108 Above high normal 98 -107 (mmol/L) Final CO2 10/18/2023 09:22:23 25 22-32 (mmo l/L) Final Anion gap 10/18/2023 09:22:23 9 7-15 (mmol /L) Final Glucose 10/18/2023 09:22:23 90 70-120 (mg /dL) Final Albumin 10/18/2023 09:22:23 4.1 3.8-5.0 (g /dL) Final AST (Aspartate aminotransferase) 10/18/2023 09:22:23 20 10-50 (U/L) Fin al Alk Phos 10/18/2023 09:22:23 64 35-130 (U/ L) Final Bilirubin, Total 10/18/2023 09:22:23 0.6 <=1 .2 (mg/dL) Final Calcium 10/18/2023 09:22:23 8.8 8.4-10.2 ( mg/dL) Final Protein 10/18/2023 09:22:23 6.2 6.0-8.3 (g /dL) Final ALT (Alanine aminotransferase) 10/18/2023 09:22:23 25 10-50 (U/L) Red langley Performing Location [facility] - [address] [facility] [id number]
--- OUTSIDE RECORDS SUMMARY | 2024-01-26 17:45 | External Medical Summary | Summary of Care ---
Author Name Unknown Organization [facility] Address [address] [facility] [place] [address] Phone [phone] Care Team Providers Care [employer] Name Role Phone Laina Villanueva MD Primary Care Provider [phone] Reason for Visit * Reason Comments Follow Up 2-3 months for AKs Encounter Details Date Type Department Care Team (Late st Contact Info) Description 12/18/2023 11:20 AM EDT Office Visit Dermatology [address] [place] [address] Mita Ramirez PA-C [address] [place] [address] [place] [address] Hx of melanoma of skin*; Hx of [...] either or our main Dermatology office in [place] at [phone]. If an emergency, please go to your nearest Emergency Department. documented in this encounter Progress Notes * Jey Paul MD - 12/20/2023 7:38 AM EDT I have seen and examined the patient via teledermatology review of chart note and photos with Mita Ramirez PA-C. I have reviewed and agree with the assessment and plan. * Mita Ramirez PA-C - 12/18/2023 11:22 [...] keratoses Reviewed, same day as visit, 0 [facility] Dermatology lab work(s)/pathology report(s) as well as [...] and fingernails completed: 1A. L scalp, behind ear-[id number] eroded pink/hemorrhagic oval papule. 2B. R underside [...] Mita Ramirez PA-C 12/18/2023 11:22 AM Dermatology [address] [place] [address] documented in this encounter Nursing Notes * Antoinette Bradford LPN - 12/18/2023 11:11 AM EDT Patient identified by full name and date of . Chief Complaint Patient presents with Follow Up 2-3 months for AKs documented in this encounter Miscellaneous Notes * Result Encounter Note - iMta Ramirez PA-C - 12/19/2023 12:48 PM EDT Spoke to pt regarding bx results. hAK/likely SCC on scalp and BCC on underside of chin, plan on Mohs for both lesions in [facility]. Patient is aware that he will be called to schedule the appt. [facility] A. Skin, L scalp, behind ear, [...] cell carcinoma, at least nodular type * Addendum Note - Antoinette Bradford LPN - 12/18/2023 2:12 PM EDTAddended by: ANTOINETTE BRADFORD on: 12/18/2023 02:12 PM Modules accepted: Orders documented in this encounter Plan of Treatment Upcoming Encounters Date Type Department Care Team (Late st Contact Info) Description 05/06/2024 8:40 AM EDT Office Visit Dermatology [address] [place] [address] Mita Ramirez PA-C [address] [place] [address] [place] [address] Health Maintenance Due Date Last Done Comments [...] Procedure Name Priority Date/Time Associated Diagnosis Comments SURGICAL PATHOLOGY Routine 12/18/2023 11 :43 AM EDT Neoplasm of uncertain behavior of skin DERM IMAGE (SITE) Routine 12/18/2023 Neoplasm of uncertain behavior of skin documented in this encounter Results * SURGICAL PATHOLOGY (12/18/2023 11:43 AM EDT) Final Diagnosis A. Skin, L scalp, behind ear, shave: [...] Basal cell carcinoma, at least nodular type 12/19/2023 11:23 AM EDT LABORATORY [facility] Clinical History See Order Comments 12/19/2023 11:23 AM EDT LABORATORY C Order Comments 1A. L scalp, behind ear-[id number] eroded pink/hemorrhagic oval papule. BCC 2B. R underside of chin-1.3x0.4cm white/yellow hyperkeratotic plaque. VK vs hAK vs SCCIS 12/19/2023 11:23 AM EDT LABORATORY [facility] Gross Description A. Skin. Received in formalin with a container labeled with "Huy Rayo", "[id number]", "1940" and " less scalp behind ear". Received is a 0.9 x 0.8 cm skin shave. The skin surface is duenas-white flaky hair-bearing and remarkable for a somewhat centrally located raised keratotic like crusted area measuring 0.4 x 0.4 cm, extending 0.1 cm from the nearest margin. The underlying tissue is inked. The specimen is trisected and submitted in cassette A1. Gross By: MR Cook Skin. Received in formalin with a container labeled with "Huy Rayo", "[id number]", "1940" and " right under site of chin". Received is a 0.9 x 0.6 cm skin shave. The skin surface is duenas to white and remarkable for a somewhat centrally located slightly raised duenas area measuring 0.7 x 0.3 cm, extending to the nearest margin. The underlying tissue is inked. The specimen is bisected and submitted in cassette B1. Gross By: 12/19/2023 11:23 AM EDT LABORATORY [facility] Microscopic Description Microscopic examination performed. Microscopic examination performed. 12/19/2023 11:23 AM EDT LABORATORY [facility] Sign Out Location Pathologist sign out performed at [facility] [address] [facility] ([facility]), [address] [place] [address]. 12/19/2023 11:23 AM EDT LABORATORY [facility] Photographic images and diagrams represent wade findings in this case; they are not intended to replace a complete review of the final diagnostic report. The following statement applies to Flow Cytometry, Histology, In situ Hybridization Assays and Molecular Genetics. This test was developed and performed at [facility] [address] and its performance characteristics determined by [employer] It has not been cleared or approved by the U.S. Food and Drug Administration. The FDA has determined that such clearance or approval is not necessary. This test is used for clinical purposes. It should not be regarded as investigational or for research. Special stains, including histochemical stains, and studies using immunologic and ISIDORO methodology (where applicable) are performed with appropriate positive and negative control reactions. 12/19/2023 11:23 AM EDT LABORATORY [facility] Tissue Skin structure / Unknown 12/18/2023 11:43 AM EDT 12/18/2023 11:43 AM EDT Comment:1A. L scalp, behind ear-[id number] eroded pink/hemorrhagic oval papule.BCC2B. R underside of chin-1.3x0.4cm white/yellow hyperkeratotic plaque.VK vs hAK vs SCCIS Specimen from wound (specimen) Skin structure / Unknown 12/18/2023 11:43 AM EDT 12/18/2023 11:43 AM EDT Comment:1A. L scalp, behind ear-[id number] eroded pink/hemorrhagic oval papule.BCC2B. R underside of chin-1.3x0.4cm white/yellow hyperkeratotic plaque.VK vs hAK vs SCCIS Mita Ramirez PA-C LAB PATHOLOGY ORDERABLES LABORATORY [facility] [address] [place] [address] * DERM IMAGE (SITE) (12/18/2023) 12/18/2023 Mita Ramirez PA-C DIGITAL PHOTOG FLAQUITA documented in this encounter Visit Diagnoses Diagnosis Hx of melanoma of skin- Primary Personal history of malignant melanoma of skin Hx of nonmelanoma skin cancer Personal history of other malignant neoplasm of skin Actinic keratosis Neoplasm of uncertain behavior of skin documented in this encounter Care Teams Global Head [employer] Relationship Specialty Start Date End Date Laina Villanueva MD [address] [place] [address] [place] [address] PCP - General 02/03/08 documented as of this encounter
[2024-01-26] MEDS: SODIUM CHLORIDE 0.9% 1,000 ML IV SCH (18:15)
[2024-01-26 18:22] LABS: Basophils # (auto) 0.02 K/uL (0.00-0.20); Basophils % (auto) 0.2 %; Eosinophils # (auto) 0.03 K/uL (0.00-0.50); Eosinophils % (auto) 0.3 %; Hematocrit (blood only) 47.9 % (42.0-52.0); Hemoglobin 15.8 g/dl (14.0-18.0); Immature Granulocytes # (auto) 0.06 K/uL (0.01-0.20); Immature Granulocytes % (auto) 0.5 %; Lymphocytes # (auto) 0.83 K/uL (1.20-3.40); Lymphocytes % (auto) 6.9 %; Mean Corpuscular Hemoglobin 30.6 pg (25.0-34.0); Mean Corpuscular Volume 92.6 fL (80.0-100.0); Mean Platelet Volume 10.4 fL (9.4-12.4); Monocytes # (auto) 0.34 K/uL (0.11-0.59); Monocytes % (auto) 2.8 %; Neutrophils # (auto) 10.72 K/uL (1.40-6.50); Neutrophils % (auto) 89.3 %; Platelet Count 188 K/uL (130-400); RDW Coefficient of Variation 13.4 % (11.5-14.5); RDW Standard Deviation 45.6 fL (36.4-46.3); Red Blood Count 5.17 M/uL (4.70-6.10)
[2024-01-26 18:25] LABS: Albumin Globulin Ratio 1.4 (0.9-2); Albumin Level 3.8 gm/dl (3.4-5.0); BUN Creatinine Ratio 15.3 (10-20); Bilirubin,Total 1.3 mg/dl (0.2-1.0); Calcium 8.5 mg/dl (8.6-10.3); Creatinine Clr Calc Pharmacy 43.3 ml/min; Est GFR (African American) 57.5 ml/min; Est GFR (Non-African American) 49.6 ml/min; Globulin 2.7 gm/dl (2.5-4.0); Magnesium 1.8 mg/dl (1.7-2.4); Potassium 4.4 mmol/L (3.5-5.1); Total Protein 6.5 gm/dl (6.0-8.3)
[2024-01-26] MEDS: ONDANSETRON INJ 2 MG/ML 2 ML VIAL IV STA (18:31)
[2024-01-26 18:32] LABS: Troponin I High Sensitivity 5.9 pg/ml (0-20)
[2024-01-26] MEDS: HYDROmorphone INJ 0.5 MG/0.5 ML SYR IV PRN (18:32)
--- NOTE | 2024-01-26 18:38 | Emergency Department Note ---
Impression & Plan Acute pancreatitis, Abdominal pain, acute, Vomiting, Elevated LFTs, Leukocytosis ED Provider Note NAME: ROXANNA GREWAL AGE: 83 SEX: Male INFORMANT: Patient and family ED PROVIDER(S): Gigi Lepe MD CHIEF COMPLAINT: Abdominal pain PLAN: Disposition: Admitted Outpatient prescription management: None Referral: None MEDICAL DECISION MAKING: Patient presented because of abdominal pain. He had no relief with nitro and aspirin prehospital. He did feel better after Zofran and Toradol. His abdomen was quite distended and he was tender. ECG was nonischemic. Patient was given additional Zofran and Dilaudid. He was sent emergently for CT imaging. He had a leukocytosis and elevated LFTs on labs. Patient appears to have pancreatitis on imaging and has an elevated amylase and lipase. Patient was feeling better on reassessment and I did discuss the findings. Ultrasound imaging was ordered. Patient was started on LR at 200 mL an hour. Further management in the hospital will be necessary. [facility] Patient was evaluated in the ER and admitted for further management Care/management discussed with: real estate transaction manager Level of care consideration(s): After review of the information above and other included data, I feel the patient requires escalation of care to admission. Triage Nursing notes: reviewed and agree them. Vital Signs: reviewed and remarkable for mildly low diastolic blood pressure. Additional History obtained from: Family. Family states patient was acting normally yesterday and today before symptoms. Chronic Medical/Social Conditions affecting care: CAD Prior/ Outside/ External records reviewed: none Differential Diagnosis: Obstruction, biliary pathology, renal colic, UTI, appendicitis, diverticulitis, mesenteric ischemia, aortic pathology, infections, inflammatory bowel disease, PUD, as well as other pathologies. Diagnostics, independently interpreted by me: ECG: Twelve-lead ECG reveals sinus rhythm with PVCs at 72 bpm. Left axis deviation and incomplete right bundle branch block. No ST elevation. Cardiac Monitoring: Cardiac monitoring ordered by me: The patient was placed on continuous cardiac monitoring and observed. It revealed a sinus rhythm with PVCs at 77 bpm Medical decision rules: none Imaging studies: CT scan reveals presence of pancreatitis. I refer you to the EMR for further details. HPI: 83 year old Male arrives for evaluation of abdominal pain. This started around 1130 this morning and is persisting. The patient also notes the following associated symptoms, nausea and vomiting, pain radiating to the upper back. Patient notes most of the pain is on the right side.. The patient has 3 nitro at home for relieving factors. This did not help. He was given aspirin by EMS. They also then started an IV, gave Zofran, 50 mg of Toradol and 250 mL of normal saline which helped. Pain was a 10 out of 10 and then decreased. Current pain is rated as 6/10. Abdominal surgical history of hernia repair. Still has his appendix and gallbladder. Up until the symptoms started the patient was in his normal state of health without complaints. Pt denies LOC, headache, fevers, chills, diaphoresis, visual changes, neck pain, chest pain, breathing difficulties, melena, hematochezia, urinary symptoms, numbness, weakness, lymphadenopathy, rash, or other complaints. PAST MEDICAL HISTORY: See Below, CAD PAST SURGICAL HISTORY: See Below, hernia repair, CABG SOCIAL HISTORY: See Below, HOME MEDICATIONS: See Below ALLERGIES: See Below VITALS: See Below PHYSICAL EXAMINATION: GENERAL: Awake, alert, uncomfortable-appearing, in no distress HENT: Normocephalic, atraumatic. Oropharynx unremarkable. EYES: Normal conjunctiva. Sclera non-icteric. NECK: Inspection normal. Non-tender. Supple. No nuchal rigidity. FROM. No masses. RESPIRATORY: Clear to auscultation. No wheezes. No rales. Normal respiratory effort. CARDIAC: Normal rate. Normal rhythm. No murmurs. No rubs. Extremities warm and well perfused. Pulses equal. No JVD. GI: Soft, moderate-distended. Tympanitic to percussion right-sided tenderness to palpation. No rebound but there is guarding. No masses. RECTAL: Deferred. MUSCULOSKELETAL: Atraumatic. Chest examination reveals no tenderness. The back is symmetrical on inspection without obvious abnormality. There is no CVA tenderness to palpation. No joint edema. LOWER EXTREMITIES: Calves are equal size bilaterally and non-tender. No edema. No discoloration. NEURO: Normal sensorium. No sensory or motor deficits noted. SKIN: No rash or jaundice noted. PROCEDURES: none CRITICAL CARE: none OBSERVATION NOTE: none Past Med/Surg History Social History Smoking Status: Former smoker Tobacco Type: Cigarettes Smoking End Date: "50 years ago"; Second Hand Exposure: No; Do You Dip or Chew Tobacco: No; Hx Alcohol Use: Yes Alcohol type: beer Hx Substance Use: No Preferred Language: Korean Delivery Assistant Required: No Beliefs That Will Affect Care: None Current Living Situation: Spouse Other Information That Helps Us Care for You: No Feels Safe at Home: Yes Safety Concerns: Feels Safe At This Time Assistive Devices: Glasses Allergies Allergies Allergy/AdvReac Type Severity Reaction Status Date / Time Penicillins Allergy Unknown UNKNOWN - Verified 01/26/24 20:07 A CHILD Home Meds Home Medications Medication Instructions Recorded Confirmed albuterol sulfate 90 mcg/actuation 2 puff inhalation Q4 PRN Shortness 01/26/24 01/26/24 aerosol inhaler Of Breath Or Wheezing amlodipine 2.5 mg tablet 2.5 mg PO QPM 01/26/24 01/26/24 aspirin 81 mg tablet,delayed 81 mg PO DAILY 01/26/24 01/26/24 release atorvastatin 40 mg tablet 40 mg PO DAILY 01/26/24 01/26/24 fluticasone fur. 100 mcg-umeclid 1 inh inhalation DAILY 01/26/24 01/26/24 62.5 mcg-vilant 25 mcg inhalat.powder (Trelegy Ellipta) furosemide 20 mg tablet 20 mg PO DAILY 01/26/24 01/26/24 pantoprazole 20 mg tablet,delayed 20 mg PO BID 01/26/24 01/26/24 release Results & Data (ED) Vital Signs Vital Signs - 24 hr 01/26/24 17:48 01/26/24 17:51 01/26/24 18:00 Temperature 36.5 C Temperature Source Oral Pulse Rate 69 74 77 Pulse Rate from SpO2 Sensor 59 L Respiratory Rate 18 21 Blood Pressure 118/63 Blood Pressure Mean 81 Pulse Oximetry 93 91 Oxygen Delivery Method Room Air Room Air Oxygen Flow Rate Sepsis New/Unexplained Change in Mental Status No Sepsis Action Taken by Nursing No Action Required 01/26/24 18:00 01/26/24 18:08 01/26/24 18:30 Temperature Temperature Source Pulse Rate 74 Pulse Rate from SpO2 Sensor 60 Respiratory Rate 26 H Blood Pressure 116/51 L Blood Pressure Mean 79 Pulse Oximetry 92 Oxygen Delivery Method Room Air Oxygen Flow Rate Sepsis New/Unexplained Change in Mental Status Sepsis Action Taken by Nursing 01/26/24 18:30 01/26/24 19:09 01/26/24 19:11 Temperature Temperature Source Pulse Rate 70 77 Pulse Rate from SpO2 Sensor 50 L Respiratory Rate 17 16 Blood Pressure 89/64 L 135/79 Blood Pressure Mean 73 97 Pulse Oximetry 92 Oxygen Delivery Method Room Air Oxygen Flow Rate Sepsis New/Unexplained Change in Mental Status Sepsis Action Taken by Nursing 01/26/24 19:30 01/26/24 20:00 01/26/24 21:30 Temperature Temperature Source Pulse Rate 77 78 78 Pulse Rate from SpO2 Sensor 73 73 59 L Respiratory Rate 18 22 17 Blood Pressure 98/59 L 105/69 Blood Pressure Mean 72 81 Pulse Oximetry 92 90 88 L Oxygen Delivery Method Room Air Room Air Room Air Oxygen Flow Rate Sepsis New/Unexplained Change in Mental Status Sepsis Action Taken by Nursing 01/26/24 21:31 01/26/24 21:31 01/26/24 22:01 Temperature Temperature Source Pulse Rate 75 73 Pulse Rate from SpO2 Sensor 52 L Respiratory Rate 18 Blood Pressure 116/60 Blood Pressure Mean 86 Pulse Oximetry 99 Oxygen Delivery Method Nasal Cannula Oxygen Flow Rate 3 Sepsis New/Unexplained Change in Mental Status Sepsis Action Taken by Nursing Laboratory Data 01/26/24 17:48 01/26/24 17:48 Lab Results 01/26/24 01/26/24 Range/Units 17:48 18:15 WBC 12.00 H (4.8-10.8) K/ul RBC 5.17 (4.70-6.10) M/uL Hgb 15.8 (14.0-18.0) g/dl Hct 47.9 (42.0-52.0) % MCV 92.6 (80.0-100.0) fL MCH 30.6 (25.0-34.0) pg MCHC 33.0 (32.0-36.0) g/dL RDW Std Deviation 45.6 (36.4-46.3) fL RDW Coeff of Maria Isabel 13.4 (11.5-14.5) % Plt Count 188 (130-400) K/uL MPV 10.4 (9.4-12.4) fL Immature Gran % (Auto) 0.5 % Neut % (Auto) 89.3 % Lymph % (Auto) 6.9 % [place] % (Auto) 2.8 % Eos % (Auto) 0.3 % Baso % (Auto) 0.2 % Neut # (Auto) 10.72 H (1.40-6.50) K/uL Lymph # (Auto) 0.83 L (1.20-3.40) K/uL [place] # (Auto) 0.34 (0.11-0.59) K/uL Eos # (Auto) 0.03 (0.00-0.50) K/uL Baso # (Auto) 0.02 (0.00-0.20) K/uL Immature Gran # (Auto) 0.06 (0.01-0.20) K/uL Sodium 138 (136-145) mmol/L Potassium 4.4 (3.5-5.1) mmol/L Chloride 106 (98-107) mmol/L Carbon Dioxide 24 (21-32) mmol/L Anion Gap 8 (3-11) BUN 20 (6-23) mg/dl Creatinine 1.31 (0.6-1.4) mg/dl Est Cr Clr Drug Dosing 43.3 ml/min Est GFR ( Amer) 57.5 ml/min Est GFR (Non-Af Amer) 49.6 ml/min BUN/Creatinine Ratio 15.3 (10-20) Glucose 90 (70-99(Fasting)) mg/dl Lactate 1.3 (0.4-2.0) mmol/L Calcium 8.5 L (8.6-10.3) mg/dl Magnesium 1.8 (1.7-2.4) mg/dl Total Bilirubin 1.3 H (0.2-1.0) mg/dl AST 102 H (13-39) U/L ALT 82 H (7-52) U/L Alkaline Phosphatase 94 (34-104) U/L Troponin I High Sens 5.9 (0-20) pg/ml Total Protein 6.5 (6.0-8.3) gm/dl Albumin 3.8 (3.4-5.0) gm/dl Globulin 2.7 (2.5-4.0) gm/dl Albumin/Globulin Ratio 1.4 (0.9-2) Amylase 1062 H (25-115) U/L Lipase 2734 H (11-82) U/L TSH 2.647 (0.300-4.500) uIu/ml Administered Medications Hydromorphone HCl (Hydromorphone Inj 0.5 Mg/0.5 Ml Syr) 0.5 mg IV Q3H PRN PRN Reason: Mod-Sev Pain (Scale 4-10) Stop: 02/09/24 23:21 Last Admin: 01/27/24 00:43 Dose: 0.5 mg Documented By: KAMARI Lactated Ringer's (Lr) 1,000 mls @ 200 mls/hr IV .Q5H BIJAN Stop: 02/25/24 23:21 Last Admin: 01/26/24 23:51 Dose: 200 mls/hr Documented By: KAMARI Pantoprazole Sodium 40 mg/ (Syringe) 10 mls @ 5 mls/min IV BID BIJAN Stop: 02/25/24 23:21 Last Admin: 01/26/24 23:53 Dose: 5 mls/min Documented By: KAMARI Discontinued Medications Hydromorphone HCl (Hydromorphone Inj 0.5 Mg/0.5 Ml Syr) 0.5 mg IV Q15M PRN PRN Reason: Pain Stop: 02/09/24 18:25 Last Admin: 01/26/24 18:32 Dose: 0.5 mg Documented By: LITTLE Sodium Chloride (Nss) 1,000 mls @ 125 mls/hr IV .Q8H BIJAN Stop: 01/27/24 02:14 Last Infusion: 01/26/24 21:10 Dose: Infused Documented By: Admin: 01/26/24 18:15 Dose: 125 mls/hr Documented By: LITTLE Sodium Chloride (Nss) 250 mls @ 999 mls/hr IV .Q16M ONE Stop: 01/26/24 19:04 Last Infusion: 01/26/24 19:47 Dose: Infused Documented By: Admin: 01/26/24 19:12 Dose: 999 mls/hr Documented By: SISI Lactated Ringer's (Lr) 1,000 mls @ 200 mls/hr IV .Q5H BIJAN Stop: 02/25/24 20:14 Last Infusion: 01/26/24 23:47 Dose: Infused Documented By: Admin: 01/26/24 21:05 Dose: 200 mls/hr Documented By: SISI Ondansetron HCl (Ondansetron Inj 2 Mg/Ml 2 Ml Vial) 4 mg IV NOW STA Stop: 01/26/24 18:27 Last Admin: 01/26/24 18:31 Dose: 4 mg Documented By: LITTLE Imaging Data Radiologist's Impression: Chest X-Ray 01/26/24 18:03 XR chest 1V portable CLINICAL HISTORY: weakness TECHNIQUE: Single frontal radiograph of the chest was obtained. Comparison: None available at the time of this dictation. FINDINGS: Median sternotomy wires are unchanged. Calcified aortic knob is seen. Bilateral lower lung predominant airspace opacities are seen. No evidence of pleural effusion or pneumothorax. IMPRESSION: Bilateral lower lung predominant airspace opacities which may represent atelectasis, pneumonia, and/or aspiration. ACT 112: Negative or not required by law. Electronically signed by: Jaylen Antonio M.D. 01/26/2024 6:50 PM Abdomen/Pelvis CT 01/26/24 18:26 CT abd pelvis wo con CLINICAL HISTORY: abd distension, right sided pain TECHNIQUE: Helical axial images of the abdomen and pelvis were obtained. Automated dose lowering techniques and/or adjustment according to patient size were utilized for this exam. This exam was performed without intravenous contrast. CT DOSE: 924.34 mGy.cm COMPARISON: None available at the time of this dictation. FINDINGS: Lower chest: Bibasilar atelectasis versus scarring is seen. Cardiomegaly is seen. Liver: Unremarkable. No focal lesions are seen. Gallbladder and biliary tree: Layering radiodense material is seen in the dependent portion of the likely representing sludge. No intra- or extrahepatic biliary ductal dilation. Pancreas: Peripancreatic stranding is seen. No discrete pancreatic mass. Spleen: Unremarkable. Adrenals: Unremarkable. Kidneys and ureters: Perinephric stranding is noted bilaterally. Bladder: Unremarkable. Reproductive organs: Prostatomegaly is seen. Bowel: Diverticulosis is seen without diverticulitis. The appendix is normal. Wall thickening is seen about the duodenum. There is a small hiatal hernia. Lymph nodes Retroperitoneal: Subcentimeter edwardo hepatis nodes are noted. Pelvic: Unremarkable. Mesenteric: Unremarkable. Peritoneum: Fat stranding is seen in the mid abdomen and left upper quadrant. Vessels: Unremarkable. Abdominal wall: A fat-containing umbilical hernia is seen. Postsurgical changes of left inguinal hernia repair. Fat-containing right inguinal hernia. Bones: Degenerative changes in the visualized spine. IMPRESSION: There is fat stranding about the pancreas, spleen, and duodenum. Findings are favored to represent pancreatitis with reactive duodenal inflammation, although primary duodenitis cannot be excluded. ACT 112: Negative or not required by law. Electronically signed by: Jaylen Antonio M.D. 01/26/2024 7:26 PM Gallbladder Ultrasound 01/26/24 20:01 Exam(s): US GALLBLADDER EXAM: US Abdomen Limited, Gallbladder CLINICAL HISTORY: Reason for exam: pancreatitis, elevated LFTs. TECHNIQUE: Real-time ultrasound of the right upper quadrant with image documentation. COMPARISON: No relevant prior studies available. FINDINGS: Gallbladder: Negative ultrasound Rocha sign. No gallbladder wall thickening. Dependent sludge seen in the gallbladder. No gallstones. Common bile duct: CBD caliber measures 5 mm in diameter. No stones. No dilation. Pancreas: Visualized pancreatic head is unremarkable. Right kidney: The right kidney measures 9.5 cm in length. No hydronephrosis. IMPRESSION: No evidence of cholecystitis or cholelithiasis Electronically signed by: Alsesio Rodriguez MD 01/26/24 22:11 PM Discharge Plan Visit Data Chief Complaint: Illness Stated Complaint: NECK, CHEST, BACK & AB PAIN ED Provider: Gigi Lepe Discharge Problem: Acute pancreatitis, Abdominal pain, acute, Vomiting, Elevated LFTs, Leukocytosis Patient Disposition: Admitted As Inpatient Discharge Instructions Interventions: ED Discharge Assessment Last Done: 01/26/24 22:47
[2024-01-26 18:41] LABS: Thyroid Stimulating Hormone 2.647 uIu/ml (0.300-4.500)
--- NOTE | 2024-01-26 18:51 | XRay Report ---
XR chest 1V portable CLINICAL HISTORY: weakness TECHNIQUE: Single frontal radiograph of the chest was obtained. Comparison: None available at the time of this dictation. FINDINGS: Median sternotomy wires are unchanged. Calcified aortic knob is seen. Bilateral lower lung predominan t airspace opacities are seen. No evidence of pleural effusion or pneumothorax. IMPRESSION: Bilateral lower lung predominant airspace opacities which may represent atelectasis, pneumonia, and/o r aspiration. ACT 112: Negative or not required by law. Electronically signed by: Jaylen Antonio M.D. 01/26/2024 6:50 PM
[2024-01-26] MEDS: SODIUM CHLORIDE 0.9% 250 ML IV ONE (19:12)
--- NOTE | 2024-01-26 19:28 | CT Scan Report ---
CT abd pelvis wo con CLINICAL HISTORY: abd distension, right sided pain TECHNIQUE: Helical axial images of the abdomen and pelvis were obtained. Automated dose lowering tech niques and/or adjustment according to patient size were utilized for this exam. This exam was perfor med without intravenous contrast. CT DOSE: 924.34 mGy.cm COMPARISON: None available at the time of this dictation. FINDINGS: Lower chest: Bibasilar atelectasis versus scarring is seen. Cardiomegaly is seen. Liver: Unremarkable. No focal lesions are seen. Gallbladder and biliary tree: Layering radiodense material is seen in the dependent portion of the li agusto representing sludge. No intra- or extrahepatic biliary ductal dilation. Pancreas: Peripancreatic stranding is seen. No discrete pancreatic mass. Spleen: Unremarkable. Adrenals: Unremarkable. Kidneys and ureters: Perinephric stranding is noted bilaterally. Bladder: Unremarkable. Reproductive organs: Prostatomegaly is seen. Bowel: Diverticulosis is seen without diverticulitis. The appendix is normal. Wall thickening is seen about the duodenum. There is a small hiatal hernia. Lymph nodes Retroperitoneal: Subcentimeter edwardo hepatis nodes are noted. Pelvic: Unremarkable. Mesenteric: Unremarkable. Peritoneum: Fat stranding is seen in the mid abdomen and left upper quadrant. Vessels: Unremarkable. Abdominal wall: A fat-containing umbilical hernia is seen. Postsurgical changes of left inguinal heather ia repair. Fat-containing right inguinal hernia. Bones: Degenerative changes in the visualized spine. IMPRESSION: There is fat stranding about the pancreas, spleen, and duodenum. Findings are favored to represent pa ncreatitis with reactive duodenal inflammation, although primary duodenitis cannot be excluded. ACT 112: Negative or not required by law. Electronically signed by: Jaylen Antonio M.D. 01/26/2024 7:26 PM
[2024-01-26] MEDS: LACTATED RINGER'S 1,000 ML IV SCH ×2 (21:05→23:51)
--- NOTE | 2024-01-26 22:12 | Ultrasound Report ---
Exam(s): US GALLBLADDER EXAM: US Abdomen Limited, Gallbladder CLINICAL HISTORY: Reason for exam: pancreatitis, elevated LFTs. TECHNIQUE: Real-time ultrasound of the right upper quadrant with image documentation. COMPARISON: No relevant prior studies available. FINDINGS: Gallbladder: Negative ultrasound Rocha sign. No gallbladder wall thickening. Dependent sludge seen in the gallbladder. No gallstones. Common bile duct: CBD caliber measures 5 mm in diameter. No stones. No dilation. Pancreas: Visualized pancreatic head is unremarkable. Right kidney: The right kidney measures 9.5 cm in length. No hydronephrosis. IMPRESSION: No evidence of cholecystitis or cholelithiasis Electronically signed by: Alessio Rodriguez MD 01/26/24 22:11 PM
--- NOTE | 2024-01-26 22:34 | History & Physical Report ---
Date of Service January 26, 2024 Assessment & Plan (1) Acute pancreatitis: Plan: 83-year-old male with past medical significant for CAD s/p CABG, hypertension, hyperlipidemia, COPD ,GERD presents with abdominal pain and found to have acute pancreatitis. Patient states since today morning he is having abdominal pain in the epigastric region radiating down and also into the lower chest severe in nature associate with some nausea. Denies any vomiting. No fevers. He took nitro at home it seemed to help little bit but the pain came back. He is having headache from nitro. Denies any dizziness. No blurred visions. No earache or runny nose or sore throat. No cough. No fevers.. No cough ,no shortness of breath. Normal bowel and bladder movements. Ambulates without support. Hemodynamics are okay. In the ER because of pain not able to take deep breath and requiring oxygen. Patient states with the pain medication the pain is improved but when he coughs the pain gets worse. Family is in the room. Acute pancreatitis CT scan and ultrasound showing gallbladder sludge Total bilirubin 1.3 AST 102, ALT 82, alkaline phosphatase 94 Troponin 5.9 Amylase 1062, lipase 2734. N.p.o. IV linger lactate 200 mill per hour IV Dilaudid as needed GI and surgical consult in a.m. for further recommendations History of CAD s/p CABG Continue aspirin, statin On Lasix for ankle edema which is held for now Monitor for volume overload Patient and deny CHF Hyperlipidemia On statin Hypertension on amlodipine We will monitor GERD Possible duodenitis and CAT scan Will place on IV Protonix twice daily History of COPD Currently requiring oxygen as the patient is not able to take deep breaths because of pain Continue home inhalers Nebs as needed DVT prophylaxis SCDs for now Disposition Med/telemetry Full code History of Present Illness Chief Complaint: Abdominal pain Primary Care Provider: Yomaira Villanueva 83-year-old male with past medical significant for CAD s/p CABG, hypertension, hyperlipidemia, COPD ,GERD presents with abdominal pain and found to have acute pancreatitis. Patient states since today morning he is having abdominal pain in the epigastric region radiating down and also into the lower chest severe in nature associate with some nausea. Denies any vomiting. No fevers. He took nitro at home it seemed to help little bit but the pain came back. He is having headache from nitro. Denies any dizziness. No blurred visions. No earache or runny nose or sore throat. No cough. No fevers.. No cough ,no shortness of breath. Normal bowel and bladder movements. Ambulates without support. Hemodynamics are okay. In the ER because of pain not able to take deep breath and requiring oxygen. Patient states with the pain medication the pain is improved but when he coughs the pain gets worse. Family is in the room. Past medical history as mentioned above Past surgical history. CABG. 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 Hernia surgery. Right carotid endarterectomy. Social history. Quit smoking 50 years ago. Alcohol social drinking. Family history significant for heart disease in the family Allergies Allergy/AdvReac Type Severity Reaction Status Date / Time Penicillins Allergy Unknown UNKNOWN - Verified 01/26/24 20:07 A CHILD Home Medications Medication Instructions Recorded Confirmed Type albuterol sulfate 90 mcg/actuation 2 puff inhalation Q4 PRN Shortness 01/26/24 01/26/24 History aerosol inhaler Of Breath Or Wheezing amlodipine 2.5 mg tablet 2.5 mg PO QPM 01/26/24 01/26/24 History aspirin 81 mg tablet,delayed 81 mg PO DAILY 01/26/24 01/26/24 History release atorvastatin 40 mg tablet 40 mg PO DAILY 01/26/24 01/26/24 History fluticasone fur. 100 mcg-umeclid 1 inh inhalation DAILY 01/26/24 01/26/24 History 62.5 mcg-vilant 25 mcg inhalat.powder (Trelegy Ellipta) furosemide 20 mg tablet 20 mg PO DAILY 01/26/24 01/26/24 History pantoprazole 20 mg tablet,delayed 20 mg PO BID 01/26/24 01/26/24 History release Past Med/Surg History Social History Smoking Status: Former smoker Tobacco Type: Cigarettes Smoking End Date: "50 years ago"; Second Hand Exposure: No; Do You Dip or Chew Tobacco: No; Hx Alcohol Use: Yes Alcohol type: beer Hx Substance Use: No Preferred Language: Cam[place]onian Edm Operator Required: No Beliefs That Will Affect Care: None Current Living Situation: Spouse Other Information That Helps Us Care for You: No Feels Safe at Home: Yes Safety Concerns: Feels Safe At This Time Assistive Devices: Glasses Review of Systems Review of Systems: All systems reviewed & are unremarkable except as noted in HPI & below Physical Exam Physical Exam: General- Not in distress Head- atraumatic Eyes- PERRL. ENT- oropharynx clear Neck- supple, no JVD. Lungs- diminished b/l breath sounds,no wheezing or crackles. Heart- regular rhythm; no murmur, no gallop. Abdomen- normal bowel sounds, soft, diffuse tender , mild guarding, no distension preset. Extremities- no pretibial edema, no erythema seen. Neuro- alert, oriented PERRL, no facial palsy; no dysarthria; moves extremities. Results & Data Results & Data Vital Signs (Past 12 Hours) Vital Signs Temp Pulse Resp BP Pulse Ox O2 Del Method O2 Flow Rate 01/26/24 22:01 73 01/26/24 21:31 75 18 99 Nasal Cannula 3 01/26/24 21:31 116/60 01/26/24 21:30 78 17 88 L Room Air 01/26/24 20:00 78 22 105/69 90 Room Air 01/26/24 19:30 77 18 98/59 L 92 Room Air 01/26/24 19:11 77 16 135/79 92 Room Air 01/26/24 19:09 70 17 01/26/24 18:30 89/64 L 01/26/24 18:30 74 26 H 92 01/26/24 18:08 Room Air 01/26/24 18:00 116/51 L 01/26/24 18:00 77 21 91 Room Air 01/26/24 17:51 36.5 C 74 18 118/63 93 Room Air 01/26/24 17:48 69 Diagnostic Findings Laboratory Results WBC 12.00 K/ul (4.8-10.8) H 01/26/24 17:48 RBC 5.17 M/uL (4.70-6.10) 01/26/24 17:48 Hgb 15.8 g/dl (14.0-18.0) 01/26/24 17:48 Hct 47.9 % (42.0-52.0) 01/26/24 17:48 MCV 92.6 fL (80.0-100.0) 01/26/24 17:48 MCH 30.6 pg (25.0-34.0) 01/26/24 17:48 MCHC 33.0 g/dL (32.0-36.0) 01/26/24 17:48 RDW Std Deviation 45.6 fL (36.4-46.3) 01/26/24 17:48 RDW Coeff of Maria Isabel 13.4 % (11.5-14.5) 01/26/24 17:48 Plt Count 188 K/uL (130-400) 01/26/24 17:48 MPV 10.4 fL (9.4-12.4) 01/26/24 17:48 Immature Gran % (Auto) 0.5 % 01/26/24 17:48 Neut % (Auto) 89.3 % 01/26/24 17:48 Lymph % (Auto) 6.9 % 01/26/24 17:48 Roberts % (Auto) 2.8 % 01/26/24 17:48 Eos % (Auto) 0.3 % 01/26/24 17:48 Baso % (Auto) 0.2 % 01/26/24 17:48 Neut # (Auto) 10.72 K/uL (1.40-6.50) H 01/26/24 17:48 Lymph # (Auto) 0.83 K/uL (1.20-3.40) L 01/26/24 17:48 Roberts # (Auto) 0.34 K/uL (0.11-0.59) 01/26/24 17:48 Eos # (Auto) 0.03 K/uL (0.00-0.50) 01/26/24 17:48 Baso # (Auto) 0.02 K/uL (0.00-0.20) 01/26/24 17:48 Immature Gran # (Auto) 0.06 K/uL (0.01-0.20) 01/26/24 17:48 Sodium 138 mmol/L (136-145) 01/26/24 17:48 Potassium 4.4 mmol/L (3.5-5.1) 01/26/24 17:48 Chloride 106 mmol/L (98-107) 01/26/24 17:48 Carbon Dioxide 24 mmol/L (21-32) 01/26/24 17:48 Anion Gap 8 (3-11) 01/26/24 17:48 BUN 20 mg/dl (6-23) 01/26/24 17:48 Creatinine 1.31 mg/dl (0.6-1.4) 01/26/24 17:48 Est Cr Clr Drug Dosing 43.3 ml/min 01/26/24 17:48 Est GFR ( Amer) 57.5 ml/min 01/26/24 17:48 Est GFR (Non-Af Amer) 49.6 ml/min 01/26/24 17:48 BUN/Creatinine Ratio 15.3 (10-20) 01/26/24 17:48 Glucose 90 mg/dl (70-99(Fasting)) 01/26/24 17:48 Lactate 1.3 mmol/L (0.4-2.0) 01/26/24 18:15 Calcium 8.5 mg/dl (8.6-10.3) L 01/26/24 17:48 Magnesium 1.8 mg/dl (1.7-2.4) 01/26/24 17:48 Total Bilirubin 1.3 mg/dl (0.2-1.0) H 01/26/24 17:48 AST 102 U/L (13-39) H 01/26/24 17:48 ALT 82 U/L (7-52) H 01/26/24 17:48 Alkaline Phosphatase 94 U/L (34-104) 01/26/24 17:48 Troponin I High Sens 5.9 pg/ml (0-20) 01/26/24 17:48 Total Protein 6.5 gm/dl (6.0-8.3) 01/26/24 17:48 Albumin 3.8 gm/dl (3.4-5.0) 01/26/24 17:48 Globulin 2.7 gm/dl (2.5-4.0) 01/26/24 17:48 Albumin/Globulin Ratio 1.4 (0.9-2) 01/26/24 17:48 Amylase 1062 U/L (25-115) H 01/26/24 17:48 Lipase 2734 U/L (11-82) H 01/26/24 17:48 TSH 2.647 uIu/ml (0.300-4.500) 01/26/24 17:48 Impressions Chest X-Ray 01/26/24 18:03 XR chest 1V portable CLINICAL HISTORY: weakness TECHNIQUE: Single frontal radiograph of the chest was obtained. Comparison: None available at the time of this dictation. FINDINGS: Median sternotomy wires are unchanged. Calcified aortic knob is seen. Bilateral lower lung predominant airspace opacities are seen. No evidence of pleural effusion or pneumothorax. IMPRESSION: Bilateral lower lung predominant airspace opacities which may represent atelectasis, pneumonia, and/or aspiration. ACT 112: Negative or not required by law. Electronically signed by: Jaylen Antonio M.D. 01/26/2024 6:50 PM Abdomen/Pelvis CT 01/26/24 18:26 CT abd pelvis wo con CLINICAL HISTORY: abd distension, right sided pain TECHNIQUE: Helical axial images of the abdomen and pelvis were obtained. Automated dose lowering techniques and/or adjustment according to patient size were utilized for this exam. This exam was performed without intravenous contrast. CT DOSE: 924.34 mGy.cm COMPARISON: None available at the time of this dictation. FINDINGS: Lower chest: Bibasilar atelectasis versus scarring is seen. Cardiomegaly is seen. Liver: Unremarkable. No focal lesions are seen. Gallbladder and biliary tree: Layering radiodense material is seen in the dep endent portion of the likely representing sludge. No intra- or extrahepatic biliary ductal dilation. Pancreas: Peripancreatic stranding is seen. No discrete pancreatic mass. Spleen: Unremarkable. Adrenals: Unremarkable. Kidneys and ureters: Perinephric stranding is noted bilaterally. Bladder: Unremarkable. Reproductive organs: Prostatomegaly is seen. Bowel: Diverticulosis is seen without diverticulitis. The appendix is normal. Wall thickening is seen about the duodenum. There is a small hiatal hernia. Lymph nodes Retroperitoneal: Subcentimeter edwardo hepatis nodes are noted. Pelvic: Unremarkable. Mesenteric: Unremarkable. Peritoneum: Fat stranding is seen in the mid abdomen and left upper quadrant. Vessels: Unremarkable. Abdominal wall: A fat-containing umbilical hernia is seen. Postsurgical changes of left inguinal hernia repair. Fat-containing right inguinal hernia. Bones: Degenerative changes in the visualized spine. IMPRESSION: There is fat stranding about the pancreas, spleen, and duodenum. Findings are favored to represent pancreatitis with reactive duodenal inflammation, although primary duodenitis cannot be excluded. ACT 112: Negative or not required by law. Electronically signed by: Jaylen Antonio M.D. 01/26/2024 7:26 PM Gallbladder Ultrasound 01/26/24 20:01 Exam(s): US GALLBLADDER EXAM: US Abdomen Limited, Gallbladder CLINICAL HISTORY: Reason for exam: pancreatitis, elevated LFTs. TECHNIQUE: Real-time ultrasound of the right upper quadrant with image documentation. COMPARISON: No relevant prior studies available. FINDINGS: Gallbladder: Negative ultrasound Rocha sign. No gallbladder wall thickening. Dependent sludge seen in the gallbladder. No gallstones. Common bile duct: CBD caliber measures 5 mm in diameter. No stones. No dilation. Pancreas: Visualized pancreatic head is unremarkable. Right kidney: The right kidney measures 9.5 cm in length. No hydronephrosis. IMPRESSION: No evidence of cholecystitis or cholelithiasis Electronically signed by: Alessio Rodriguez MD 01/26/24 22:11 PM ECG Additional Comments: ECG. Sinus rhythm with occasional PVCs at a rate of 72. Left axis deviation. Incomplete right bundle branch block. Code Status & VTE Plan VTE Prophylaxis Plan VTE Prophylaxis will be ordered: Yes
[2024-01-26 23:19] LABS: Appearance Urine Cloudy (Clear); Bacteria Urine Automated None Seen (None Seen); Bilirubin Urine 1+ (Negative); Blood Urine Negative (Negative); Color Urine Dark Yellow; Epithelial Cell Urine Auto 0-2 /hpf (0-2); Glucose Urine UA Negative (Negative); Ketones Urine Trace (Negative); Leukocyte Esterase Urine Trace (Negative); Nitrite Urine Negative (Negative); Protein Urine 1+ (Negative); RBC Urine Automated 0-2 /hpf (0-2); Specific Gravity Urine 1.023 (1.000-1.030); Urobilinogen Urine Negative (Negative); WBC Urine Automated 0-5 /hpf (0-5); pH Urine 5.5 (4.5-7.5)
[2024-01-26] MEDS ORDERED: ONDANSETRON INJ 2 MG/ML 2 ML VIAL IV PRN (23:22)
[2024-01-26] MEDS ORDERED: NITROGLYCERIN SL 0.4 MG/TAB TAB SL PRN (23:22)
[2024-01-26] MEDS ORDERED: ALBUTEROL HFA 8 GM INHALER INH PRN (23:22)
[2024-01-26] MEDS ORDERED: ACETAMINOPHEN 325 MG TAB PO PRN (23:22)
[2024-01-26] MEDS ORDERED: LEVALBUTEROL 1.25 MG/3 ML NEB NEB PRN (23:22)
[2024-01-26 23:34] LABS: Granular Casts Urine P /lpf (None Prsent); Mucus Urine Present (None Prsent)
[2024-01-26] MEDS: PANTOprazole 40 MG in SYRINGE 0 ML IV SCH (23:53)
[2024-01-27] MEDS: HYDROmorphone INJ 0.5 MG/0.5 ML SYR IV PRN (00:43)
[2024-01-27 06:04] LABS: Basophils # (auto) 0.04 K/uL (0.00-0.20); Basophils % (auto) 0.2 %; Eosinophils # (auto) 0.01 K/uL (0.00-0.50); Hematocrit (blood only) 42.1 % (42.0-52.0); Hemoglobin 13.8 g/dl (14.0-18.0); Immature Granulocytes # (auto) 0.17 K/uL (0.01-0.20); Immature Granulocytes % (auto) 0.8 %; Lymphocytes # (auto) 1.35 K/uL (1.20-3.40); Lymphocytes % (auto) 6.4 %; Mean Corpuscular Hemoglobin 30.3 pg (25.0-34.0); Mean Corpuscular Hgb Conc 32.8 g/dL (32.0-36.0); Mean Corpuscular Volume 92.3 fL (80.0-100.0); Mean Platelet Volume 10.2 fL (9.4-12.4); Monocytes # (auto) 1.33 K/uL (0.11-0.59); Monocytes % (auto) 6.3 %; Neutrophils # (auto) 18.26 K/uL (1.40-6.50); Neutrophils % (auto) 86.3 %; Platelet Count 155 K/uL (130-400); RDW Coefficient of Variation 13.8 % (11.5-14.5); RDW Standard Deviation 46.6 fL (36.4-46.3); Red Blood Count 4.56 M/uL (4.70-6.10); White Blood Count 21.16 K/ul (4.8-10.8)
[2024-01-27 06:42] LABS: Albumin Level 3.5 gm/dl (3.4-5.0); BUN Creatinine Ratio 14.3 (10-20); Bilirubin Direct 0.4 mg/dl (0-0.2); Bilirubin,Total 1.5 mg/dl (0.2-1.0); Est GFR (African American) 33.9 ml/min; Est GFR (Non-African American) 29.2 ml/min; Magnesium 1.7 mg/dl (1.7-2.4); Potassium 5.3 mmol/L (3.5-5.1); Total Protein 5.8 gm/dl (6.0-8.3)
--- NOTE | 2024-01-27 07:45 | Surgery Consultation ---
<Statement entered by Estela Gomez DO - 01/27/24 14:25> I have seen this patient and agree with the plan. In patient or outpatient cholecystectomy once pancreatitis has resolved Cardiology clearance for surgery Date of Consultation January 27, 2024 Assessment & Plan (1) Acute pancreatitis: Patient is a 83 yo male with presented to the [facility] ER 01/26/24 with C/o abdominal pain that suddenly started yesterday evening. He reports associated nausea without vomiting. While in the ER he underwent a CT scan of the Abd./Pelvis that is reading pancreatitis with duodenal inflammation. An ultrasound of the Gallbladder does not show acute cholecystitis or cholelithiasis but is reading some dependant sludge seen. On exam he is NAD, abdomen is firm, distended, TTP, reports more in the epigastric area, RUQ. VSS, is on 02 via NC d/t pain with deep inspiration. WBC elevated at 21, LFT elevated T Bili 1.5, D. Bili 0.4, Lipase 1630. GI consult was placed. Ok with sips / chips for now. IV Fluids for hydration IV antiemetic PRN IV antibiotics IV analgesic PRN No acute surgical intervention at this time, Patient will need cardiac clearance if surgery is to be done this admission Will discuss case with on-call surgeon and further recommendations will be forthcoming. (2) Elevated LFTs: History of Present Illness Reason for Consultation: acute pancreatitis. gall bladder sludge Requesting Physician: Dr. Rice Attending Physician: Miguelito Quintana MD History of Present Illness Patient is a pleasant 83 yo male with PMH CAD s/p CABG , HLD, HTN, COPD, GERD, that presented to the [facility] ER 01/26/24 with C/o abdominal pain that suddenly started yesterday evening. He reports associated nausea without vomiting. While in the ER he underwent a CT scan of the Abd./Pelvis that is reading pancreatitis with duodenal inflammation. An ultrasound of the Gallbladder does not show acute cholecystitis or cholelithiasis but is reading some dependant sludge seen. The patient takes a baby aspirin daily for blood thinners. Allergies Allergy/AdvReac Type Severity Reaction Status Date / Time Penicillins Allergy Unknown UNKNOWN - Verified 01/26/24 20:07 A CHILD Home Medications Medication Instructions Recorded Confirmed Type albuterol sulfate 90 mcg/actuation 2 puff inhalation Q4 PRN Shortness 01/26/24 01/26/24 History aerosol inhaler Of Breath Or Wheezing amlodipine 2.5 mg tablet 2.5 mg PO QPM 01/26/24 01/26/24 History aspirin 81 mg tablet,delayed 81 mg PO DAILY 01/26/24 01/26/24 History release atorvastatin 40 mg tablet 40 mg PO DAILY 01/26/24 01/26/24 History fluticasone fur. 100 mcg-umeclid 1 inh inhalation DAILY 01/26/24 01/26/24 History 62.5 mcg-vilant 25 mcg inhalat.powder (Trelegy Ellipta) furosemide 20 mg tablet 20 mg PO DAILY 01/26/24 01/26/24 History pantoprazole 20 mg tablet,delayed 20 mg PO BID 01/26/24 01/26/24 History release Patient History Social History Smoking Status: Former smoker Tobacco Type: Cigarettes Smoking End Date: "50 years ago"; Second Hand Exposure: No; Do You Dip or Chew Tobacco: No; Hx Alcohol Use: Yes Alcohol type: beer Hx Substance Use: No Preferred Language: German Hi Ranger Operator Required: No Beliefs That Will Affect Care: None Current Living Situation: Spouse Other Information That Helps Us Care for You: No Feels Safe at Home: Yes Safety Concerns: Feels Safe At This Time Assistive Devices: Glasses Review of Systems Constitutional: no fever and no chills Eyes: + corrective lenses Cardiovascular: no chest pain Gastrointestinal: + abdominal pain and + bloating; no naus ea and no vomiting Integumentary: no rash and no yellowing of the skin Psychiatric: no confusion Physical Exam Physical Exam: alert oriented Constitutional: cooperative and comfortable; no acute distress Respiratory: normal respiratory effort and able to speak in complete sentences; no respiratory distress Cardiovascular: Rate/Rhythm: regular rate Gastrointestinal (Abdomen): Inspection/Auscultation: + abdomen distended Percussion/Palpation: + abdomen tender and + abdomen firm Skin: no jaundice Psychiatric: A+Ox3, euthymic affect Results & Data Vital Signs (Past 12 Hours) Vital Signs Temp Pulse Pulse Resp BP BP Pulse Ox 01/27/24 07:08 69 01/27/24 03:48 98.2 F 67 18 117/72 99 01/27/24 00:53 01/26/24 23:31 78 01/26/24 23:22 63 98 01/26/24 23:14 98.4 F 50 L 18 103/52 L 83 L 01/26/24 22:01 73 01/26/24 21:31 75 18 99 01/26/24 21:31 116/60 01/26/24 21:30 78 17 88 L 01/26/24 20:00 78 22 105/69 90 O2 Del Method O2 Flow Rate 01/27/24 07:08 01/27/24 03:48 Nasal Cannula 2 01/27/24 00:53 Nasal Cannula 3 01/26/24 23:31 01/26/24 23:22 Nasal Cannula 3 01/26/24 23:14 Room Air 01/26/24 22:01 01/26/24 21:31 Nasal Cannula 3 01/26/24 21:31 01/26/24 21:30 Room Air 01/26/24 20:00 Room Air Diagnostic Findings [place] [phone] CT Scan Report Patient: ROXANNA GREWAL Admit Date: 01/26/24 MR#: [id number] Address1: [address] [place] [address] Acct ID:[id number] Address2: Date: 1940 [facility] Zip: [place] [id number] Age: 83 Location: ED Sex: M Room/Bed: Att Phy: Diagnosis: CHEST PAIN Anabel Phy: Yomaira Villanueva M.D. Service Date: 01/26/24 [facility] Phy: Interpreting Phy: Jaylen Antonio MDAdmit Phy: Ordering Phy: Gigi Lepe MD cc: ~ CT abd pelvis wo con CLINICAL HISTORY: abd distension, right sided pain TECHNIQUE: Helical axial images of the abdomen and pelvis were obtained. Automated dose lowering techniques and/or adjustment according to patient size were utilized for this exam. This exam was performed without intravenous contrast. CT DOSE: 924.34 mGy.cm COMPARISON: None available at the time of this dictation. FINDINGS: Lower chest: Bibasilar atelectasis versus scarring is seen. Cardiomegaly is seen. Liver: Unremarkable. No focal lesions are seen. Gallbladder and biliary tree: Layering radiodense material is seen in the dependent portion of the likely representing sludge. No intra- or extrahepatic biliary ductal dilation. Pancreas: Peripancreatic stranding is seen. No discrete pancreatic mass. Spleen: Unremarkable. Adrenals: Unremarkable. Kidneys and ureters: Perinephric stranding is noted bilaterally. Bladder: Unremarkable. Reproductive organs: Prostatomegaly is seen. Bowel: Diverticulosis is seen without diverticulitis. The appendix is normal. Wall thickening is seen about the duodenum. There is a small hiatal hernia. Lymph nodes Retroperitoneal: Subcentimeter edwardo hepatis nodes are noted. Pelvic: Unremarkable. Mesenteric: Unremarkable. Peritoneum: Fat stranding is seen in the mid abdomen and left upper quadrant. Vessels: Unremarkable. Abdominal wall: A fat-containing umbilical hernia is seen. Postsurgical changes of left inguinal hernia repair. Fat-containing right inguinal hernia. Bones: Degenerative changes in the visualized spine. IMPRESSION: There is fat stranding about the pancreas, spleen, and duodenum. Findings are favored to represent pancreatitis with reactive duodenal inflammation, although primary duodenitis cannot be excluded. ACT 112: Negative or not required by law. Electronically signed by: Jaylen Antonio M.D. 01/26/2024 7:26 PM Dictated: 01/26/241919 Transcribed: 01/26/241919 [phone] Ul[facility]ound Report Patient: ROXANNA GREWAL Admit Date: 01/26/24 MR#: [id number] Address1: [address] [place] [address] Acct ID:[id number] Address2: Date: 1940 [facility] Zip: [place] [address] Age: 83 Location: ED Sex: M Room/Bed: Att Phy: Diagnosis: CHEST PAIN Anabel Phy: Yomaira Villanueva M.D. Service Date: 01/26/24 [facility] Phy: Interpreting Phy: Alessio Rodriguez MDAdmit Phy: Ordering Phy: Gigi Lepe MD cc: ~ Exam(s): US GALLBLADDER EXAM: US Abdomen Limited, Gallbladder CLINICAL HISTORY: Reason for exam: pancreatitis, elevated LFTs. TECHNIQUE: Real-time ultrasound of the right upper quadrant with image documentation. COMPARISON: No relevant prior studies available. FINDINGS: Gallbladder: Negative ultrasound Rocha sign. No gallbladder wall thickening. Dependent sludge seen in the gallbladder. No gallstones. Common bile duct: CBD caliber measures 5 mm in diameter. No stones. No dilation. Pancreas: Visualized pancreatic head is unremarkable. Right kidney: The right kidney measures 9.5 cm in length. No hydronephrosis. IMPRESSION: No evidence of cholecystitis or cholelithiasis Electronically signed by: Alessio Rodriguez MD 01/26/24 22:11 PM Dictated: 01/26/242210 Transcribed: 01/26/242210 Results CMP Results: Na 137 mmol/L (136-145) 01/27/24 K 5.3 mmol/L (3.5-5.1) H 01/27/24 Cl 106 mmol/L (98-107) 01/27/24 CO2 26 mmol/L (21-32) 01/27/24 Anion Gap 5 (3-11) 01/27/24 BUN 29 mg/dl (6-23) H 01/27/24 Creatinine 2.03 mg/dl (0.6-1.4) H 01/27/24 Estimated GFR ( Amer) 33.9 ml/min 01/27/24 Estimated GFR (Non-Af Amer) 29.2 ml/min 01/27/24 BUN/Creatinine Ratio 14.3 (10-20) 01/27/24 Glu 92 mg/dl (70-99(Fasting)) 01/27/24 Ca 8.0 mg/dl (8.6-10.3) L 01/27/24 Total Bilirubin 1.5 mg/dl (0.2-1.0) H 01/27/24 Direct Bilirubin 0.4 mg/dl (0-0.2) H 01/27/24 AST 49 U/L (13-39) H 01/27/24 ALT 59 U/L (7-52) H 01/27/24 Alkaline Phosphatase 73 U/L (34-104) 01/27/24 TP 5.8 gm/dl (6.0-8.3) L 01/27/24 Albumin 3.5 gm/dl (3.4-5.0) 01/27/24 Globulin 2.7 gm/dl (2.5-4.0) 01/26/24 Albumin/Globulin Ratio 1.4 (0.9-2) 01/26/24 Results Complete Blood Count Results: RBC 4.56 M/uL (4.70-6.10) L 01/27/24 WBC 21.16 K/ul (4.8-10.8) H 01/27/24 Hgb 13.8 g/dl (14.0-18.0) L 01/27/24 Hct 42.1 % (42.0-52.0) 01/27/24 Plt Count 155 K/uL (130-400) 01/27/24 PG Care Time/CCT Total # of Minutes Spent Total Time Spent with Patient: Total time spent is greater than 50% in coordination of care (as documented) at patient's floor/unit and/or counseling patient: Coding Level of Care Code 64474 INT INP/OBS CARE 140MIN Diagnoses Acute pancreatitis K85.90 Elevated LFTs R79.89
[2024-01-27] MEDS: ASPIRIN 81 MG ECTAB PO SCH (08:01)
[2024-01-27] MEDS: UMECLIDINIUM/VILANTEROL 62.5/25MCG 7 PUFFS/INHALER INH SCH (08:01)
[2024-01-27] MEDS: ATORVASTATIN 40 MG TAB PO SCH (08:01)
[2024-01-27] MEDS: FLUTICASONE FUROATE 100MCG 14 PUFFS/INHALER INH SCH (08:01)
[2024-01-27 08:23] LABS: Troponin I High Sensitivity 8.7 pg/ml (0-20)
--- NOTE | 2024-01-27 08:33 | Electrocardiogram Report ---
Test Reason : Blood Pressure : / mmHG Vent. Rate : 072 BPM Atrial Rate : 072 BPM P-R Int : 170 ms QRS Dur : 098 ms QT Int : 390 ms P-R-T Axes : 025 -75 -14 degrees QTc Int : 427 ms Sinus rhythm with occasional Premature ventricular complexes Left axis deviation Incomplete right bundle branch block Poor R wave progression, consider anterior MD vs. lead placement vs. LVH Abnormal ECG No previous ECGs available Confirmed by Rudy Guo ([id number]) on 01/27/2024 8:33:08 AM Referred By: REFERRED SELF Confirmed By:Ru Guo
[2024-01-27] MEDS ORDERED: NON-FORMULARY MEDICATION (Fluticasone-Umeclidin-Vilanter [Trelegy Ellipta] 100-62.5-25 mcg INH SCH (09:00)
--- NOTE | 2024-01-27 09:32 | Gastrointestinal Consultation ---
Date of Consultation January 27, 2024 Assessment & Plan (1) Acute pancreatitis: Patient admitted with acute pancreatitis. He does endorse that he is an every day alcohol user. Typically 1-2 cans of light beer a day. He reports having 1-2 shots of crown royal prior to the onset of symptoms. Pancreatitis likely alcohol induced. - discussed with patient to cease use of ETOH. - recommend IVF, pain control. - tolerated sips of water this morning. if still doing well, can advance diet as tolerated. - continue with protonix 40mg IV BID. Supervising Physician Co-Signing Physician Notes Agree with VAHID Arrieta as above Interviewed and examined patient and agree with above Abd: Soft, NT, ND, +BS Continue current therapy and supportive care Advance diet to clear liquids History of Present Illness Reason for Consultation: acute pancreatitis Requesting Physician: Abdi Rice MD Attending Physician: Miguelito Quintana MD History of Present Illness Patient is an 83 year old male with a past medical history of CAD s/p CABG , HLD, HTN, COPD, GERD, who presented to the [facility] ER 01/26/24 with complaints of abdominal pain, nausea, and vomiting. He had attempted to use nitro as well as baby aspirin but saw no benefit so he proceeded to the ED. He had CT 01/25 showing fat stranding in the pancreas, spleen, and duodenum - favored to represent pancreatitis with reactive duodenal inflammation. He had US 01/25 showing no signs of cholecystitis or cholelithiasis. Lipase initially 2734. He was admitted and tells me that since admission he has been feeling somewhat better. Still with abdominal pain, but better than previously. Lipase did improve to 1630. He admits to me that he is an every day alcohol user. He tells me he will have 1-2 cans of light beer daily. He admits that prior to the onset of pain he had "1-2 shots of crown royal". rest of GI ros negative. he had sips of water this morning and tells me seemed to tolerate this thus far. Allergies Allergy/AdvReac Type Severity Reaction Status Date / Time Penicillins Allergy Unknown UNKNOWN - Verified 01/26/24 20:07 A CHILD Home Medications Medication Instructions Recorded Confirmed Type albuterol sulfate 90 mcg/actuation 2 puff inhalation Q4 PRN Shortness 01/26/24 01/26/24 History aerosol inhaler Of Breath Or Wheezing amlodipine 2.5 mg tablet 2.5 mg PO QPM 01/26/24 01/26/24 History aspirin 81 mg tablet,delayed 81 mg PO DAILY 01/26/24 01/26/24 History release atorvastatin 40 mg tablet 40 mg PO DAILY 01/26/24 01/26/24 History fluticasone fur. 100 mcg-umeclid 1 inh inhalation DAILY 01/26/24 01/26/24 History 62.5 mcg-vilant 25 mcg inhalat.powder (Trelegy Ellipta) furosemide 20 mg tablet 20 mg PO DAILY 01/26/24 01/26/24 History pantoprazole 20 mg tablet,delayed 20 mg PO BID 01/26/24 01/26/24 History release Patient History Social History Smoking Status: Former smoker Tobacco Type: Cigarettes Smoking End Date: "50 years ago"; Second Hand Exposure: No; Do You Dip or Chew Tobacco: No; Hx Alcohol Use: Yes Alcohol type: beer Hx Substance Use: No Preferred Language: Burundian Communication Ability: Effective Manager Credit Risk Required: No Beliefs That Will Affect Care: None Current Living Situation: Spouse Other Information That Helps Us Care for You: No Feels Safe at Home: Yes Safety Concerns: Feels Safe At This Time Assistive Devices: Glasses Review of Systems Review of Systems: All systems reviewed & are unremarkable except as noted in HPI & below Physical Exam Constitutional: WD/WN, vitals as above Respiratory: normal respiratory effort, lungs clear to auscultation Cardiovascular: RRR, no murmur, no edema Gastrointestinal (Abdomen): epigastric tenderness, abdomen distended. no guarding. normal bowel sounds. Skin: no rashes, warm and dry Psychiatric: Orientation: alert and oriented x 3 Affect: euthymic affect Results & Data Vital Signs (Past 12 Hours) Vital Signs Temp Pulse Pulse Resp BP BP BP 01/27/24 09:16 01/27/24 07:38 98.6 F 59 L 16 106/62 01/27/24 07:08 69 01/27/24 03:48 98.2 F 67 18 117/72 01/27/24 00:53 01/26/24 23:31 78 01/26/24 23:22 63 01/26/24 23:14 98.4 F 50 L 18 103/52 L 01/26/24 22:01 73 01/26/24 21:31 75 18 01/26/24 21:31 116/60 Pulse Ox O2 Del Method O2 Flow Rate 01/27/24 09:16 Nasal Cannula 3 01/27/24 07:38 93 Nasal Cannula 3 01/27/24 07:08 01/27/24 03:48 99 Nasal Cannula 2 01/27/24 00:53 Nasal Cannula 3 01/26/24 23:31 01/26/24 23:22 98 Nasal Cannula 3 01/26/24 23:14 83 L Room Air 01/26/24 22:01 01/26/24 21:31 99 Nasal Cannula 3 01/26/24 21:31 Coding Level of Care Code 03982 INT INP/OBS CARE 2/55MIN Diagnoses Acute pancreatitis K85.90
--- NOTE | 2024-01-27 13:19 | Hospitalist Progress Note ---
Date of Service January 27, 2024 Assessment & Plan (1) Acute pancreatitis: Plan: 83-year-old male with past medical significant for CAD s/p CABG, hypertension, hyperlipidemia, COPD ,GERD presents with abdominal pain and found to have acute pancreatitis. Patient states since today morning he is having abdominal pain in the epigastric region radiating down and also into the lower chest severe in nature associate with some nausea. Denies any vomiting. No fevers. He took nitro at home it seemed to help little bit but the pain came back. He is having headache from nitro. Denies any dizziness. No blurred visions. No earache or runny nose or sore throat. No cough. No fevers.. No cough ,no shortness of breath. Normal bowel and bladder movements. Ambulates without support. Hemodynamics are okay. In the ER because of pain not able to take deep breath and requiring oxygen. Patient states with the pain medication the pain is improved but when he coughs the pain gets worse. Family is in the room. Acute pancreatitis CT scan is suggestive of pancreatitis with reactive duodenal inflammation Amylase 1062, lipase 2734. Ultrasound showed gallbladder sludge without evidence of cholecystitis:Total bilirubin 1.3,AST 102, ALT 82, alkaline phosphatase 94 Remains n.p.o. IV fluid and symptomatic medicines will be continued Appreciate surgery input and recommendation-conservative management now Appreciate GI input and recommendation Will continue Protonix 40 mg IV twice daily Acute renal failure Creatinine went up to 2.03 from 1.31 on admission Noted to have 1 hypotensive episode with systolic blood pressure 89 Not sure the cause of acute renal failure but will continue with intravenous fluid and monitor. Be History of CAD s/p CABG Continue aspirin, statin On Lasix for ankle edema which is held for now Denies any cardiac symptoms with usual activities at home-no palpitation shortness of breath or chest pain No contraindication for surgery but Will get echocardiogram given the cardiac history prior to surgery if needed Hyperlipidemia On statin Hypertension On amlodipine We will monitor GERD Possible duodenitis and CAT scan Will place on IV Protonix twice daily History of COPD Currently requiring oxygen as the patient is not able to take deep breaths because of pain Continue home inhalers Nebs as needed DVT prophylaxis SCDs for now Disposition Med/telemetry Full code Admission and Anticipated Discharge Date Admission Date: January 26, 2024 Subjective 01/27/2024 The patient was seen and examined in medical telemetry unit He has been complaining of abdominal pain without nausea and or vomiting Bowel movement yesterday Denies any chest pain or palpitation or any shortness of breath No fever and chills Review of Systems Review of Systems: All systems reviewed and are unremarkable except as noted below Physical Exam Physical Exam: Lying in bed with minimal distress due to abdominal discomfort Constitutional: well developed, well nourished and + ill appearing Eyes: PERRL, conjunctivae normal, anicteric sclerae ENMT: external ear and nose normal, oropharynx normal Neck: trachea midline, no thyromegaly Respiratory: no respiratory distress Auscultation: lungs clear to auscultation bilaterally Cardiovascular: Rate/Rhythm: regular rate and regular rhythm; not tachycardic Heart Sounds: normal S1 and normal S2; no murmur Extremities: no edema Gastrointestinal (Abdomen): Inspection/Auscultation: + abdomen distended and normal bowel sounds Percussion/Palpation: abdomen soft; abdomen nontender Musculoskeletal: No acute arthritis involving any of the joint Neurologic: normal touch/pain/proprioception and moves all extremities; no focal motor deficits Lymphatic: no cervical or axillary lymphadenopathy Results & Data Results & Data Vital Signs (Past 12 Hours) Vital Signs Temp Pulse Pulse Resp BP BP Pulse Ox 01/27/24 11:23 37.4 C 71 16 133/68 92 01/27/24 09:16 01/27/24 07:38 37.0 C 59 L 16 106/62 93 01/27/24 07:08 69 01/27/24 03:48 36.8 C 67 18 117/72 99 O2 Del Method O2 Flow Rate 01/27/24 11:23 Nasal Cannula 3 01/27/24 09:16 Nasal Cannula 3 01/27/24 07:38 Nasal Cannula 3 01/27/24 07:08 01/27/24 03:48 Nasal Cannula 2 Laboratory Results Short CBC 01/26/24 01/27/24 Range/Units 17:48 05:23 WBC 12.00 H 21.16 H D (4.8-10.8) K/ul Hgb 15.8 13.8 L (14.0-18.0) g/dl Hct 47.9 42.1 (42.0-52.0) % Plt Count 188 155 (130-400) K/uL BMP 01/26/24 01/27/24 17:48 05:23 Sodium 138 137 Potassium 4.4 5.3 H D Chloride 106 106 Carbon Dioxide 24 26 BUN 20 29 H Creatinine 1.31 2.03 H D Glucose 90 92 Calcium 8.5 L 8.0 L Liver Function 01/26/24 01/27/24 Range/Units 17:48 05:23 Total Bilirubin 1.3 H 1.5 H (0.2-1.0) mg/dl Direct Bilirubin 0.4 H (0-0.2) mg/dl AST 102 H 49 H (13-39) U/L ALT 82 H 59 H (7-52) U/L Alkaline Phosphatase 94 73 (34-104) U/L Albumin 3.8 3.5 (3.4-5.0) gm/dl Urine 01/26/24 Range/Units 23:00 Urine Color Dark Yellow Urine Appearance Cloudy A (Clear) Urine pH 5.5 (4.5-7.5) Ur Specific [place] 1.023 (1.000-1.030) Urine Protein 1+ H (Negative) Urine Glucose (UA) Negative (Negative) Medications Administered Current Inpatient Medications Acetaminophen (Acetaminophen 325 Mg Tab) 650 mg PO Q4H PRN PRN Reason: Pain or Fever Stop: 02/25/24 23:21 Albuterol (Albuterol Hfa 8 Gm Inhaler) 2 puffs INH Q4 PRN PRN Reason: Shortness Of Breath Or Wheezin Stop: 02/25/24 23:21 Amlodipine Besylate (Amlodipine Besylate 5 Mg Tab) 2.5 mg PO QPM BIJAN Stop: 02/26/24 20:59 Aspirin (Aspirin 81 Mg Ectab) 81 mg PO DAILY BIJAN Stop: 02/26/24 08:59 Last Admin: 01/27/24 08:01 Dose: 81 mg Atorvastatin Calcium (Atorvastatin 40 Mg Tab) 40 mg PO DAILY BIJAN Stop: 02/26/24 08:59 Last Admin: 01/27/24 08:01 Dose: 40 mg Fluticasone Furoate (Fluticasone Furoate 100mcg 14 Puffs/Inhaler) 1 puffs INH DAILY BIJAN Stop: 02/26/24 08:59 Last Admin: 01/27/24 08:01 Dose: 1 puffs Hydromorphone HCl (Hydromorphone Inj 0.5 Mg/0.5 Ml Syr) 0.5 mg IV Q3H PRN PRN Reason: Mod-Sev Pain (Scale 4-10) Stop: 02/09/24 23:21 Last Admin: 01/27/24 05:03 Dose: 0.5 mg Lactated Ringer's (Lr) 1,000 mls @ 200 mls/hr IV .Q5H BIJAN Stop: 02/25/24 23:21 Last Admin: 01/27/24 09:24 Dose: 200 mls/hr Pantoprazole Sodium 40 mg/ (Syringe) 10 mls @ 5 mls/min IV BID BIJAN Stop: 02/25/24 23:21 Last Admin: 01/27/24 08:01 Dose: 5 mls/min Levalbuterol HCl (Levalbuterol 1.25 Mg/3 Ml Neb) 1.25 mg NEB Q4R PRN; Protocol PRN Reason: Shortness Of Breath Or Wheezing Stop: 02/25/24 23:21 Nitroglycerin (Nitroglycerin Sl 0.4 Mg/Tab Tab) 0.4 mg SL Q5M PRN PRN Reason: Chest Pain Stop: 02/25/24 23:21 Ondansetron HCl (Ondansetron Inj 2 Mg/Ml 2 Ml Vial) 4 mg IV Q6H PRN PRN Reason: Nausea Stop: 02/25/24 23:21 Umeclidinium/Vilanterol (Umeclidinium/Vilanterol 62.5/25mcg 7 Puffs/Inhaler) 1 puffs INH DAILY [facility] Stop: 02/26/24 08:59 Last Admin: 01/27/24 08:01 Dose: 1 puffs
[2024-01-27 15:11] LABS: Albumin Globulin Ratio 1.3 (0.9-2); Albumin Level 3.2 gm/dl (3.4-5.0); BUN Creatinine Ratio 19.5 (10-20); Bilirubin,Total 1.3 mg/dl (0.2-1.0); Calcium 7.9 mg/dl (8.6-10.3); Creatinine Clr Calc Pharmacy 34.6 ml/min; Est GFR (African American) 43.9 ml/min; Est GFR (Non-African American) 37.8 ml/min; Globulin 2.4 gm/dl (2.5-4.0); Magnesium 1.7 mg/dl (1.7-2.4); Potassium 4.6 mmol/L (3.5-5.1); Total Protein 5.6 gm/dl (6.0-8.3)
[2024-01-27] MEDS: amLODIPine BESYLATE 5 MG TAB PO SCH (20:39)
[2024-01-27] MEDS ORDERED: LORazepam 0.5 MG in SYRINGE 0.25 ML IV PRN (20:43)
[2024-01-27] MEDS: LORazepam 0.5 MG TAB PO PRN (21:09)
[2024-01-27] MEDS: THIAMINE HCL 100 MG in SYRINGE 9 ML IV STA (21:11)
[2024-01-28 07:41] LABS: Albumin Globulin Ratio 1.3 (0.9-2); Albumin Level 3.2 gm/dl (3.4-5.0); BUN Creatinine Ratio 20.3 (10-20); Bilirubin,Total 1.2 mg/dl (0.2-1.0); Calcium 8.1 mg/dl (8.6-10.3); Creatinine Clr Calc Pharmacy 48.1 ml/min; Est GFR (African American) 65.3 ml/min; Est GFR (Non-African American) 56.3 ml/min; Globulin 2.4 gm/dl (2.5-4.0); Magnesium 1.8 mg/dl (1.7-2.4); Phosphorus 2.4 mg/dl (2.5-4.9); Potassium 4.3 mmol/L (3.5-5.1); Total Protein 5.6 gm/dl (6.0-8.3)
[2024-01-28 08:34] LABS: Basophils # (auto) 0.03 K/uL (0.00-0.20); Basophils % (auto) 0.2 %; Eosinophils # (auto) 0.07 K/uL (0.00-0.50); Eosinophils % (auto) 0.5 %; Hematocrit (blood only) 41.8 % (42.0-52.0); Hemoglobin 13.5 g/dl (14.0-18.0); Immature Granulocytes # (auto) 0.09 K/uL (0.01-0.20); Immature Granulocytes % (auto) 0.7 %; Lymphocytes # (auto) 1.71 K/uL (1.20-3.40); Lymphocytes % (auto) 12.7 %; Mean Corpuscular Hemoglobin 29.8 pg (25.0-34.0); Mean Corpuscular Hgb Conc 32.3 g/dL (32.0-36.0); Mean Corpuscular Volume 92.3 fL (80.0-100.0); Mean Platelet Volume 10.4 fL (9.4-12.4); Monocytes # (auto) 1.22 K/uL (0.11-0.59); Monocytes % (auto) 9.1 %; Neutrophils # (auto) 10.35 K/uL (1.40-6.50); Neutrophils % (auto) 76.8 %; Platelet Count 150 K/uL (130-400); RDW Coefficient of Variation 13.8 % (11.5-14.5); RDW Standard Deviation 47.6 fL (36.4-46.3); Red Blood Count 4.53 M/uL (4.70-6.10); White Blood Count 13.47 K/ul (4.8-10.8)
--- NOTE | 2024-01-28 09:05 | Electrocardiogram Report ---
Test Reason : Blood Pressure : / mmHG Vent. Rate : 105 BPM Atrial Rate : 078 BPM P-R Int : 170 ms QRS Dur : 108 ms QT Int : 334 ms P-R-T Axes : 037 -63 051 degrees QTc Int : 441 ms Sinus rhythm with frequent interpolated Premature ventricular complexes Left axis deviation Anteroseptal infarct , age undetermined Abnormal ECG When compared with ECG of 26-JAN-2024 17:47, Incomplete right bundle branch block is no longer Present Anteroseptal infarct is now Present Confirmed by Rudy Guo ([id number]) on 01/28/2024 9:05:08 AM Referred By: REFERRED SELF Confirmed By:Ru Guo
--- NOTE | 2024-01-28 12:23 | Hospitalist Progress Note ---
Date of Service January 28, 2024 Assessment & Plan (1) Acute pancreatitis: Plan: 83-year-old male with past medical significant for CAD s/p CABG, hypertension, hyperlipidemia, COPD ,GERD presents with abdominal pain and found to have acute pancreatitis. Patient states since today morning he is having abdominal pain in the epigastric region radiating down and also into the lower chest severe in nature associate with some nausea. Denies any vomiting. No fevers. He took nitro at home it seemed to help little bit but the pain came back. He is having headache from nitro. Denies any dizziness. No blurred visions. No earache or runny nose or sore throat. No cough. No fevers.. No cough ,no shortness of breath. Normal bowel and bladder movements. Ambulates without support. Hemodynamics are okay. In the ER because of pain not able to take deep breath and requiring oxygen. Patient states with the pain medication the pain is improved but when he coughs the pain gets worse. Family is in the room. Acute pancreatitis CT scan is suggestive of pancreatitis with reactive duodenal inflammation Amylase 1062, lipase 2734. Ultrasound showed gallbladder sludge without evidence of cholecystitis:Total bilirubin 1.3,AST 102, ALT 82, alkaline phosphatase 94 Remains n.p.o. IV fluid and symptomatic medicines will be continued Appreciate surgery input and recommendation-conservative management now Appreciate GI input and recommendation Will continue Protonix 40 mg IV twice daily Clinically much better-will decrease the IV fluid Advance diet as tolerated Will get PT and OT evaluation Acute renal failure Creatinine went up to 2.03 from 1.31 on admission Noted to have 1 hypotensive episode with systolic blood pressure 89 Not sure the cause of acute renal failure but will continue with intravenous fluid and monitor. Creatinine has been normalized Will decrease IV fluid and increase oral intake History of CAD s/p CABG Continue aspirin, statin On Lasix for ankle edema which is held for now Denies any cardiac symptoms with usual activities at home-no palpitation shortness of breath or chest pain No contraindication for surgery but Will get echocardiogram given the cardiac history prior to surgery if needed Echo of the heart showed: Normal LV wall thickness, no regional wall motion abnormalities, LV systolic function is normal with EF 55 to 60%, borderline aortic root dilatation, grade 1 diastolic dysfunction There is no contraindication for proposed surgery if needed Hyperlipidemia On statin Hypertension On amlodipine We will monitor GERD Possible duodenitis and CAT scan Will place on IV Protonix twice daily History of COPD Currently requiring oxygen as the patient is not able to take deep breaths because of pain Continue home inhalers Nebs as needed DVT prophylaxis SCDs for now Disposition Med/telemetry Full code Admission and Anticipated Discharge Date Admission Date: January 26, 2024 Subjective 01/27/2024 The patient was seen and examined in medical telemetry unit He has been complaining of abdominal pain without nausea and or vomiting Bowel movement yesterday Denies any chest pain or palpitation or any shortness of breath No fever and chills 01/28/2024 The patient was seen and examined in medical telemetry unit He has been feeling much better Has minimal abdominal distention but no discomfort and or pain Bowel is not moved yet Review of Systems Review of Systems: All systems reviewed and are unremarkable except as noted below Physical Exam Physical Exam: Lying in bed with minimal distress due to abdominal discomfort Constitutional: well developed, well nourished and + ill appearing Eyes: PERRL, conjunctivae normal, anicteric sclerae ENMT: external ear and nose normal, oropharynx normal Neck: trachea midline, no thyromegaly Respiratory: no respiratory distress Auscultation: lungs clear to auscultation bilaterally Cardiovascular: Rate/Rhythm: regular rate and regular rhythm; not tachycardic Heart Sounds: normal S1 and normal S2; no murmur Extremities: no edema Gastrointestinal (Abdomen): Inspection/Auscultation: + abdomen distended and normal bowel sounds Percussion/Palpation: abdomen soft; abdomen nontender Musculoskeletal: No acute arthritis involving any of the joints Neurologic: normal touch/pain/proprioception and moves all extremities; no focal motor deficits Lymphatic: no cervical or axillary lymphadenopathy Results & Data Results & Data Vital Signs (Past 12 Hours) Vital Signs Temp Pulse Pulse Resp BP BP Pulse Ox 01/28/24 11:39 36.6 C 58 L 18 144/80 H 93 01/28/24 07:57 37.1 C 65 17 176/91 H 99 01/28/24 07:21 01/28/24 07:08 66 01/28/24 03:40 36.6 C 69 18 162/89 H 95 O2 Del Method O2 Flow Rate 01/28/24 11:39 Room Air 01/28/24 07:57 Nasal Cannula 3 01/28/24 07:21 Nasal Cannula 3 01/28/24 07:08 01/28/24 03:40 Nasal Cannula Laboratory Results Short CBC 01/28/24 Range/Units 06:15 WBC 13.47 H (4.8-10.8) K/ul Hgb 13.5 L (14.0-18.0) g/dl Hct 41.8 L (42.0-52.0) % Plt Count 150 (130-400) K/uL BMP 01/27/24 01/28/24 14:34 06:13 Sodium 136 136 Potassium 4.6 4.3 Chloride 105 104 Carbon Dioxide 26 27 BUN 32 H 24 H Creatinine 1.64 H D 1.18 D Glucose 84 80 Calcium 7.9 L 8.1 L Liver Function 01/27/24 01/28/24 Range/Units 14:34 06:13 Total Bilirubin 1.3 H 1.2 H (0.2-1.0) mg/dl AST 35 28 (13-39) U/L ALT 45 35 (7-52) U/L Alkaline Phosphatase 66 64 (34-104) U/L Albumin 3.2 L 3.2 L (3.4-5.0) gm/dl Medications Administered Current Inpatient Medications Acetaminophen (Acetaminophen 325 Mg Tab) 650 mg PO Q4H PRN PRN Reason: Pain or Fever Stop: 02/25/24 23:21 Albuterol (Albuterol Hfa 8 Gm Inhaler) 2 puffs INH Q4 PRN PRN Reason: Shortness Of Breath Or Wheezin Stop: 02/25/24 23:21 Amlodipine Besylate (Amlodipine Besylate 5 Mg Tab) 2.5 mg PO QPM BIJAN Stop: 02/26/24 20:59 Last Admin: 01/27/24 20:39 Dose: 2.5 mg Aspirin (Aspirin 81 Mg Ectab) 81 mg PO DAILY BIJAN Stop: 02/26/24 08:59 Last Admin: 01/28/24 07:50 Dose: 81 mg Atorvastatin Calcium (Atorvastatin 40 Mg Tab) 40 mg PO DAILY BIJAN Stop: 02/26/24 08:59 Last Admin: 01/28/24 07:50 Dose: 40 mg Fluticasone Furoate (Fluticasone Furoate 100mcg 14 Puffs/Inhaler) 1 puffs INH DAILY BIJAN Stop: 02/26/24 08:59 Last Admin: 01/28/24 07:50 Dose: 1 puffs Hydromorphone HCl (Hydromorphone Inj 0.5 Mg/0.5 Ml Syr) 0.5 mg IV Q3H PRN PRN Reason: Mod-Sev Pain (Scale 4-10) Stop: 02/09/24 23:21 Last Admin: 01/27/24 05:03 Dose: 0.5 mg Lactated Ringer's (Lr) 1,000 mls @ 150 mls/hr IV .Q6H40M BIJAN Stop: 02/25/24 23:21 Last Admin: 01/28/24 09:23 Dose: 150 mls/hr Pantoprazole Sodium 40 mg/ (Syringe) 10 mls @ 5 mls/min IV BID BIJAN Stop: 02/25/24 23:21 Last Admin: 01/28/24 07:50 Dose: 5 mls/min Lorazepam 0.5 mg/ Syringe 0.5 mls @ 2 mls/min IV Q4H PRN PRN Reason: Anxiety/Agitation Stop: 02/26/24 20:42 Levalbuterol HCl (Levalbuterol 1.25 Mg/3 Ml Neb) 1.25 mg NEB Q4R PRN; Protocol PRN Reason: Shortness Of Breath Or Wheezing Stop: 02/25/24 23:21 Lorazepam (Lorazepam 0.5 Mg Tab) 0.5 mg PO Q6H PRN PRN Reason: Anxiety/Agitation Stop: 02/26/24 20:42 Last Admin: 01/27/24 21:09 Dose: 0.5 mg Nitroglycerin (Nitroglycerin Sl 0.4 Mg/Tab Tab) 0.4 mg SL Q5M PRN PRN Reason: Chest Pain Stop: 02/25/24 23:21 Ondansetron HCl (Ondansetron Inj 2 Mg/Ml 2 Ml Vial) 4 mg IV Q6H PRN PRN Reason: Nausea Stop: 02/25/24 23:21 Umeclidinium/Vilanterol (Umeclidinium/Vilanterol 62.5/25mcg 7 Puffs/Inhaler) 1 puffs INH DAILY [facility] Stop: 02/26/24 08:59 Last Admin: 01/28/24 07:50 Dose: 1 puffs
--- NOTE | 2024-01-28 14:14 | Surgery Progress Note ---
<Statement entered by Estela Gomez DO - 01/28/24 16:30> This case has been discussed with the surgical PA, I agree with the plan Date of Service January 28, 2024 Assessment & Plan (1) Acute pancreatitis: Plan: Patient admitted with pancreatitis CT a/p revealed reported some gb sludge. RUQ US showed no stones or evidence of acute garry Today's labs show WBC 13 (21), Tb 1.2, Lipase 492 (1630) Vitals are stable Abdomen softly distended with discomfort in the epigastric region Pt feels as though he is improving. Diet is being advanced to regular If pt tolerates diet and as labs continue to improve there is no indication for lap garry this admission. there is concern this may be etoh induced. GI following If he has issues with symptoms in the future he may always f/u with as an outpt for further workup and consideration of lap garry We will follow peripherally, please call back if any questions/concerns Admission and Anticipated Discharge Date Admission Date: January 26, 2024 Subjective Patient reports feeling some improvement in abdominal pain. Currently only had liquids thus far and is looking forward to some regular food for dinner. Physical Exam Physical Exam: resting in chair, but easily arousable and talkative Respiratory: normal respiratory effort Gastrointestinal (Abdomen): Inspection/Auscultation: + abdomen distended Percussion/Palpation: + abdomen tender (ttp in epigastric region) and abdomen soft Results & Data Vital Signs (Past 12 Hours) Vital Signs Temp Pulse Pulse Resp BP BP Pulse Ox 01/28/24 11:39 97.9 F 58 L 18 144/80 H 93 01/28/24 07:57 98.8 F 65 17 176/91 H 99 01/28/24 07:21 01/28/24 07:08 66 01/28/24 03:40 97.9 F 69 18 162/89 H 95 O2 Del Method O2 Flow Rate 01/28/24 11:39 Room Air 01/28/24 07:57 Nasal Cannula 3 01/28/24 07:21 Nasal Cannula 3 01/28/24 07:08 01/28/24 03:40 Nasal Cannula PG Care Time/CCT Total # of Minutes Spent Total Time Spent with Patient: Total time spent is greater than 50% in coordination of care (as documented) at patient's floor/unit and/or counseling patient: Coding Level of Care Code 93414 SUB INP/OBS CARE 10/10MIN Diagnoses Acute pancreatitis K85.90
[2024-01-28] MEDS: HEPARIN SOD 5,000 UNIT/0.5 ML VIAL SQ SCH (20:22)
[2024-01-29 07:37] LABS: BUN Creatinine Ratio 17.1 (10-20); Calcium 8.2 mg/dl (8.6-10.3); Creatinine Clr Calc Pharmacy 54.1 ml/min; Est GFR (African American) 75.2 ml/min; Est GFR (Non-African American) 64.9 ml/min; Magnesium 1.8 mg/dl (1.7-2.4); Phosphorus 2.5 mg/dl (2.5-4.9)
[2024-01-29 07:49] LABS: Basophils # (auto) 0.02 K/uL (0.00-0.20); Basophils % (auto) 0.2 %; Eosinophils # (auto) 0.06 K/uL (0.00-0.50); Eosinophils % (auto) 0.5 %; Hematocrit (blood only) 38.9 % (42.0-52.0); Hemoglobin 12.8 g/dl (14.0-18.0); Immature Granulocytes # (auto) 0.22 K/uL (0.01-0.20); Immature Granulocytes % (auto) 1.9 %; Lymphocytes # (auto) 1.54 K/uL (1.20-3.40); Lymphocytes % (auto) 13.2 %; Mean Corpuscular Hemoglobin 29.8 pg (25.0-34.0); Mean Corpuscular Hgb Conc 32.9 g/dL (32.0-36.0); Mean Corpuscular Volume 90.7 fL (80.0-100.0); Mean Platelet Volume 10.4 fL (9.4-12.4); Monocytes # (auto) 1.33 K/uL (0.11-0.59); Monocytes % (auto) 11.4 %; Neutrophils # (auto) 8.54 K/uL (1.40-6.50); Neutrophils % (auto) 72.8 %; Platelet Count 135 K/uL (130-400); RDW Coefficient of Variation 13.5 % (11.5-14.5); RDW Standard Deviation 45.1 fL (36.4-46.3); Red Blood Count 4.29 M/uL (4.70-6.10); White Blood Count 11.71 K/ul (4.8-10.8)
[2024-01-29] MEDS: hydrALAZINE HCL 20 MG/ML VIAL IV PRN (13:10)
--- NOTE | 2024-01-29 13:15 | Discharge Summary ---
Date of Service January 29, 2024 Admission HPI Per Admitting Provider 83-year-old male with past medical significant for CAD s/p CABG, hypertension, hyperlipidemia, COPD ,GERD presents with abdominal pain and found to have acute pancreatitis. Patient states since today morning he is having abdominal pain in the epigastric region radiating down and also into the lower chest severe in nature associate with some nausea. Denies any vomiting. No fevers. He took nitro at home it seemed to help little bit but the pain came back. He is having headache from nitro. Denies any dizziness. No blurred visions. No earache or runny nose or sore throat. No cough. No fevers.. No cough ,no shortness of breath. Normal bowel and bladder movements. Ambulates without support. Hemodynamics are okay. In the ER because of pain not able to take deep breath and requiring oxygen. Patient states with the pain medication the pain is improved but when he coughs the pain gets worse. Family is in the room. Past medical history as mentioned above Past surgical history. CABG. 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 Hernia surgery. Right carotid endarterectomy. Social history. Quit smoking 50 years ago. Alcohol social drinking. Family history significant for heart disease in the family Principal Diagnosis acute pancreatitis Discharge Data Allergies Allergy/AdvReac Type Severity Reaction Status Date / Time Penicillins Allergy Unknown UNKNOWN - Verified 01/26/24 20:07 A CHILD Consultations 01/26/24 21:02 ED Decision to Admit Stat 01/27/24 08:00 Consult Gastroenterology Routine Consult General Surgery Routine Ordered Studies 01/26/24 18:26 CT Abd and Pelvis [CT abd pelvis wo con] Stat 01/26/24 20:01 US gallbladder Stat Hospital Course (1) Acute pancreatitis: Per prior attending w/ addendum: 83-year-old male with past medical significant for CAD s/p CABG, hypertension, hyperlipidemia, COPD ,GERD presents with abdominal pain and found to have acute pancreatitis. Patient states since today morning he is having abdominal pain in the epigastric region radiating down and also into the lower chest severe in nature associate with some nausea. Denies any vomiting. No fevers. He took nitro at home it seemed to help little bit but the pain came back. He is having headache from nitro. Denies any dizziness. No blurred visions. No earache or runny nose or sore throat. No cough. No fevers.. No cough ,no shortness of breath. Normal bowel and bladder movements. Ambulates without support. Hemodynamics are okay. In the ER because of pain not able to take deep breath and requiring oxygen. Patient states with the pain medication the pain is improved but when he coughs the pain gets worse. Family is in the room. Acute pancreatitis CT scan is suggestive of pancreatitis with reactive duodenal inflammation Amylase 1062, lipase 2734. Ultrasound showed gallbladder sludge without evidence of cholecystitis:Total bilirubin 1.3,AST 102, ALT 82, alkaline phosphatase 94 Remains n.p.o. IV fluid and symptomatic medicines will be continued Appreciate surgery input and recommendation-conservative management now Appreciate GI input and recommendation Will continue Protonix 40 mg IV twice daily Clinically much better-will decrease the IV fluid Advance diet as tolerated Will get PT and OT evaluation Acute renal failure Creatinine went up to 2.03 from 1.31 on admission Noted to have 1 hypotensive episode with systolic blood pressure 89 Not sure the cause of acute renal failure but will continue with intravenous fluid and monitor. Creatinine has been normalized Will decrease IV fluid and increase oral intake History of CAD s/p CABG Continue aspirin, statin On Lasix for ankle edema which is held for now Denies any cardiac symptoms with usual activities at home-no palpitation shortness of breath or chest pain No contraindication for surgery but Will get echocardiogram given the cardiac history prior to surgery if needed Echo of the heart showed: Normal LV wall thickness, no regional wall motion abnormalities, LV systolic function is normal with EF 55 to 60%, borderline aortic root dilatation, grade 1 diastolic dysfunction There is no contraindication for proposed surgery if needed Hyperlipidemia On statin Hypertension On amlodipine We will monitor GERD Possible duodenitis and CAT scan Will place on IV Protonix twice daily History of COPD Currently requiring oxygen as the patient is not able to take deep breaths because of pain Continue home inhalers Nebs as needed DVT prophylaxis SCDs for now Disposition Med/telemetry Full code Addendum 01/29/2024: Patient was seen and examined at bedside as a follow-up of acute pancreatitis. Patient reports complete resolution of his upper belly pain, has been tolerating advancement of diet without any problems. As blood pressure was on the higher side, will DC his IV fluid, will give him one-time dose of as needed blood pressure medication, communicated with RN. Will resume his home diuretics from tomorrow. Patient advised to continue with low-fat diet/soft diet. Patient advised to refrain from alcohol which he reports to take 1-2 shots of flavored whiskey occasionally. He reported last drink was more than 4 to 5 days ago. He is being discharged with following instruction at the point of discharge: Follow-up with your primary care physician within a week time and likely you will need labs CBC/CMP/magnesium/phosphorus. follow low-fat/soft diet. If you have any increasing upper abdominal pain, refer to your PCP office or emergency immediately. refrain from alcohol use as it increases the chance of pancreatitis. Take your medications as prescribed. Please make sure that you are able to get your medications today by calling your pharmacy before you leave the hospital so that your treatment continuity is not broken. Home Health Attestation I certify that this patient is under my care and that I, or a physicians food and nutrition services assistant working with me, had a face to-face encounter that meets the home health [id number] encounter requirements with this patient. The encounter with the patient was in whole, or in part, for the following medical condition, which is the primary reason for home health care (list medical condition): I certify that, based on my findings, the following services are medically necessary home health services: My clinical findings support the need for the above services because: Further, I certify that my clinical findings support that this patient is homebound (i.e. absences from home require considerable and taxing effort and are for medical reasons or alevism services or infrequently or of short duration when for other reasons) because: Certification for Home Health Services: Based on the above findings, I certify that this patient is confined to the home and needs intermittent fci care, physical therapy and/or speech therapy or continues to need occupational therapy. The patient is under my care, and I have initiated the establishment of the plan of care. This patient will be followed by a physician who will periodically review the plan of care. Total Time Total Time Spent Total Time Spent (In Minutes): 45 Discharge Plan Discharge Items Patient Disposition: Home - Self-Care Reason For Visit: ACUTE PANCREATITIS, HX OF CAD Discharge Diagnosis: Acute pancreatitis Activity: Resume your previous activity Non-emergency contact: Primary Care Provider Call non-emergency contact if: you have any medication questions Follow-up/Referrals: Yomaira Villanueva [Primary Care Provider] - (Dr Villanueva's office will contact you for a follow up appointment. They are aware of your hospital stay.) Diet: Low Fat Diet Texture: Dental soft (bite-sized) Addtl Attending Provider Instructions: Follow-up with your primary care physician within a week time and likely you will need labs CBC/CMP/magnesium/phosphorus. follow low-fat/soft diet. If you have any increasing upper abdominal pain, refer to your PCP office or emergency immediately. refrain from alcohol use as it increases the chance of pancreatitis. Take your medications as prescribed. Please make sure that you are able to get your medications today by calling your pharmacy before you leave the hospital so that your treatment continuity is not broken. Pending Studies at Discharge: No Stand-Alone Forms: [facility], Sm[facility] Cess[facility] Medications and DC Order Prescriptions: Continued atorvastatin 40 mg tablet 40 mg PO DAILY amlodipine 2.5 mg tablet 2.5 mg PO QPM aspirin [Aspir-Low] 81 mg Tablet,Delayed Release (Dr/Ec) 81 mg PO DAILY pantoprazole 20 mg tablet,delayed release (DR/EC) 20 mg PO BID furosemide 20 mg tablet 20 mg PO DAILY albuterol sulfate 90 mcg/actuation Hfa Aerosol Inhaler 2 puff INHALATION Q4 PRN (Reason: Shortness Of Breath Or Wheezing) Trelegy Ellipta 100-62.5-25 mcg Blister With Device 1 inh INHALATION DAILY Rx Instructions: unsure of strength Discharge Orders: Discharge Order (Routine); Ordered 01/29/24 Ordered By: Mari White Admission Data Admit Date/Time: 01/26/24 22:07 Attending Provider: Mair White Admit Provider: Abdi Rice Primary Care Provider: Yomaira Villanueva Other Providers: Abdi Rice; Sheri Carey; Wayne Garcia; Kim Rashid; Deirdre Recinos; Trisha Reeves; Nancy Anthony; Pinky Sullivan; Harsh Yu; Usman Mota; Little Regalado; Alexus Bowers; Casey Ca; Yesenia Palm; Kaitlynn Moe; Iliana Murillo; Silvai Sosa; Augustine Navarro; Xavi Easton; Hernan Toledo; Richard Thornton; Pasquale Calvin Jr; Ok Schmitz
== END 2024-01-29 15:19 | disposition home or self-care (01) | DRG 439 ==
LOC: ED 17:37 → 2N 22:07 → SUATTDRO 22:07 → 2N 22:47